=== PATIENT | male | born 1940 | race Caucasian/White ===

== ENCOUNTER 2019-06-25 06:00 | Outpatient (RCR) | payer MEDICARE, OTHER, SELFPAY | END 2019-07-23 23:59 | disposition home or self-care (01) | LOC: SPT 06:00 | PROVIDERS: Family Provider Electrodiagnostic Medicine; PCP Electrodiagnostic Medicine; Referring Provider Specialist; Visit Provider Specialist | DX: Z47.1 Aftercare following joint replacement surgery (principal); Z96.651 Presence of right artificial knee joint | CPT/HCPCS: 97110; 97162 ==

== ENCOUNTER 2019-07-24 06:00 | Outpatient (RCR) | payer MEDICARE, OTHER, SELFPAY | END 2019-08-21 23:59 | disposition home or self-care (01) | LOC: SPT 06:00 | PROVIDERS: Family Provider Electrodiagnostic Medicine; PCP Electrodiagnostic Medicine; Referring Provider Specialist; Visit Provider Specialist | DX: Z47.1 Aftercare following joint replacement surgery (principal); Z96.651 Presence of right artificial knee joint | CPT/HCPCS: 97110 ==

== ENCOUNTER → 2019-07-26 11:35 | Outpatient (BNVA) | payer MEDICARE, OTHER, SELFPAY | PROVIDERS: Family Provider Electrodiagnostic Medicine; PCP Electrodiagnostic Medicine; Visit Provider Specialist | DX: Z48.89 Encounter for other specified surgical aftercare (principal); Z96.652 Presence of left artificial knee joint | CPT/HCPCS: 73560; 73565 ==

== ENCOUNTER → 2019-12-16 09:18 | Outpatient (BNVA) | payer MEDICARE, OTHER, SELFPAY | PROVIDERS: Family Provider Electrodiagnostic Medicine; PCP Electrodiagnostic Medicine; Visit Provider Specialist | DX: M17.11 Unilateral primary osteoarthritis, right knee (principal) | CPT/HCPCS: 73560; 73565 ==

== ENCOUNTER 2020-01-24 12:29 | Outpatient (CLI) | payer MEDICARE, OTHER, SELFPAY ==
--- NOTE | 2020-01-24 12:45 | USCV_ITS ---
Raul Gomez Age: 79 Gender: M : 1940 Exam Date: 01/24/2020 12:48 Ordering Phys: Andrew Conway MD ([email or web address]) Technologist: Radha Prince Exam Location: [facility] – [place] Indication: BP: 120 / 75 HR: 60 Rhythm: Sinus Technical Quality: Adequate MEASUREMENTS (Male / Female) Normal Values 2D ECHO LV Diastolic Diameter PLAX 4.8 cm 4.2 - 5.9 / 3.9 - 5.3 cm LV Systolic Diameter PLAX 2.7 cm LV Chamber Size 3.6 cm IVS Diastolic Thickness 1.2 cm 0.6 - 1.0 / 0.6 - 0.9 cm IVS Systolic Thickness 1.4 cm LVPW Diastolic Thickness 1.1 cm 0.6 - 1.0 / 0.6 - 0.9 cm LVPW Systolic Thickness 1.8 cm RV Chamber Size 4.2 cm LVOT Diameter 2.0 cm LV Ejection Fraction 2D Teich 75.4 % LV Ejection Fraction MOD 2C -3.4 % LV Ejection Fraction 2C AL -3.3 % LA Diameter 5.2 cm LA Width 3.0 cm LA Height 4.1 cm RA Width 2.0 cm RA Height 4.5 cm Aorta at Sinotubular Diameter 3.0 cm M-MODE LV Diastolic Diameter MM 4.6 cm 4.2 - 5.9 / 3.9 - 5.3 cm LV Systolic Diameter MM 2.3 cm LV Ejection Fraction MM Teich 82.2 % IVS Diastolic Thickness MM 0.9 cm 0.6 - 1.0 / 0.6 - 0.9 cm IVS Systolic Thickness MM 1.0 cm LVPW Diastolic Thickness MM 0.9 cm 0.6 - 1.0 / 0.6 - 0.9 cm LVPW Systolic Thickness MM 1.2 cm RV Diastolic Diameter MM 1.5 cm Aortic Annulus Diameter 3.7 cm LA Ao Ratio MM 1.4 MV E Point Septal Separation 0.7 cm DOPPLER AV Peak Velocity 309.0 cm/s LVOT Peak Velocity 76.0 cm/s AV Area Cont Eq vti 1.1 cm squared AV Area Cont Eq pk 0.8 cm squared MV Area PHT 2.5 cm squared Mitral E to A Ratio 0.8 MV E' Velocity 6.0 cm/s Mitral E to MV E' Ratio 12.0 Mitral E to LV E' Lateral Ratio 11.0 Mitral E to LV E' Septal Ratio 13.4 TR Peak Velocity 275.6 cm/s TR Peak Gradient 30.4 mmHg TR Mean Velocity 218.3 cm/s TR Mean Gradient 20.9 mmHg TR Velocity Time Integral 103.7 cm TV Peak E Velocity 81.0 cm/s PV Peak Velocity 64.0 cm/s RV Acceleration Time 0.1 s RV Ejection Time 0.3 s RV AcT/ET 0.3 FINDINGS Left Ventricle Normal left ventricular cavity size. Normal left ventricular systolic function. Increased left ventricular wall thickness. Left ventricular ejection fraction is estimated at 70 %. No regional wall motion abnormalities. Grade II diastolic dysfunction, moderately elevated filling pressures. Right Ventricle Normal right ventricular size and systolic function. Right ventricular systolic pressure 33 mmHg. Right Atrium Mildly increased right atrial size. Left Atrium Moderately increased left atrial size. Mitral Valve Mild mitral annular calcification. Mildly thickened and calcified mitral valve. Aortic Valve Markedly thickened and calcified aortic valve. Moderate aortic valve stenosis, peak velocity 3 m/s, peak gradient 36 mmHg, mean gradient 18 mmHg, SUMMER 1.1 cm squared. Mild aortic valve regurgitation. Tricuspid Valve Structurally normal tricuspid valve. Trace tricuspid valve regurgitation. Pulmonic Valve Pulmonic valve not well visualized. Pericardium No pericardial effusion. Aorta Normal-sized aortic root. CONCLUSIONS 1. This is a technically difficult study. 2. Normal left ventricular cavity size and systolic function. Increased left ventricular wall thickness. Left ventricular ejection fraction is estimated at 70 %. No diagnostic regional wall motion abnormalities. Grade II diastolic dysfunction, moderately elevated filling pressures. 3. Moderate aortic valve stenosis, peak velocity 3 m/s, peak gradient 36 mmHg, mean gradient 18 mmHg, SUMMER 1.1 cm squared. Mild aortic valve regurgitation. 4. When compared to previous echocardiogram dated 01/25/2019, there may not have been any significant change. Meera Ware MD (Electronically Signed) Final Date: 25 January 2020 16:39 S
== END 2020-01-24 12:30 | disposition home or self-care (01) ==
LOC: US 12:31
PROVIDERS: PCP Electrodiagnostic Medicine; Visit Provider Internal Medicine Cardiovascular Disease
DX: I35.0 Nonrheumatic aortic (valve) stenosis (principal); I51.81 Takotsubo syndrome
CPT/HCPCS: 93306

== ENCOUNTER → 2020-01-27 08:48 | Outpatient (BNVA) | payer MEDICARE, OTHER, SELFPAY | PROVIDERS: PCP Electrodiagnostic Medicine; Visit Provider Specialist | DX: M17.11 Unilateral primary osteoarthritis, right knee (principal); M17.12 Unilateral primary osteoarthritis, left knee | CPT/HCPCS: 73560; 73565 ==

== ENCOUNTER → 2020-07-05 12:53 | Outpatient (BNVA) | payer MEDICARE, OTHER, SELFPAY | PROVIDERS: PCP Electrodiagnostic Medicine; Visit Provider Specialist | DX: M25.552 Pain in left hip (principal) | CPT/HCPCS: 73502 ==

== ENCOUNTER 2020-07-10 06:00 | Outpatient (RCR) | payer MEDICARE, OTHER, SELFPAY | END 2020-07-23 23:59 | disposition home or self-care (01) | LOC: SPT 06:00 | PROVIDERS: PCP Electrodiagnostic Medicine; Referring Provider Specialist; Visit Provider Specialist | DX: M54.5 Low back pain (principal); G89.29 Other chronic pain | CPT/HCPCS: 97110; 97162 ==

== ENCOUNTER 2020-07-24 06:00 | Outpatient (RCR) | payer MEDICARE, OTHER, SELFPAY | END 2020-08-20 23:59 | disposition home or self-care (01) | LOC: SPT 06:00 | PROVIDERS: PCP Electrodiagnostic Medicine; Referring Provider Specialist; Visit Provider Specialist | DX: M54.5 Low back pain (principal); G89.29 Other chronic pain | CPT/HCPCS: 97110 ==

== ENCOUNTER 2020-07-28 13:05 | Outpatient (CLI) | payer MEDICARE, OTHER, SELFPAY ==
--- NOTE | 2020-07-28 13:17 | USCV_ITS ---
Raul Gomez Age: 80 Gender: M : 1940 Exam Date: 07/28/2020 13:34 Ordering Phys: Vikas Elias M.D ([email or web address]) Technologist: Radha Prince [place] [facility] [place]: AV STENOSIS BP: 130 / 60 HR: 51 Rhythm: Sinus Technical Quality: Adequate MEASUREMENTS (Male / Female) Normal Values 2D ECHO LV Diastolic Diameter PLAX 3.0 cm 4.2 - 5.9 / 3.9 - 5.3 cm LV Systolic Diameter PLAX 2.3 cm IVS Diastolic Thickness 0.9 cm 0.6 - 1.0 / 0.6 - 0.9 cm IVS Systolic Thickness 1.4 cm LVPW Diastolic Thickness 2.7 cm 0.6 - 1.0 / 0.6 - 0.9 cm LVPW Systolic Thickness 1.6 cm LVOT Diameter 2.0 cm LV Ejection Fraction 2D Teich 70.5 % LV Ejection Fraction MOD 2C 65.6 % LV Ejection Fraction 2C AL 67.8 % LA Diameter 4.0 cm LA Width 2.7 cm LA Height 4.9 cm RA Width 2.4 cm RA Height 3.7 cm Aorta at Sinotubular Diameter 3.7 cm M-MODE LV Diastolic Diameter MM 4.2 cm 4.2 - 5.9 / 3.9 - 5.3 cm LV Systolic Diameter MM 2.3 cm LV Ejection Fraction MM Teich 77.1 % IVS Diastolic Thickness MM 1.3 cm 0.6 - 1.0 / 0.6 - 0.9 cm IVS Systolic Thickness MM 1.6 cm LVPW Diastolic Thickness MM 1.5 cm 0.6 - 1.0 / 0.6 - 0.9 cm LVPW Systolic Thickness MM 2.0 cm RV Diastolic Diameter MM 1.8 cm Aortic Annulus Diameter 3.2 cm LA Ao Ratio MM 1.4 MV E Point Septal Separation 0.8 cm DOPPLER AV Peak Velocity 257.0 cm/s LVOT Peak Velocity 71.3 cm/s AV Area Cont Eq vti 1.1 cm squared AV Area Cont Eq pk 0.9 cm squared MV Area PHT 3.5 cm squared Mitral E to A Ratio 0.5 MV E' Velocity 24.0 cm/s Mitral E to MV E' Ratio 9.4 Mitral E to LV E' Lateral Ratio 8.2 Mitral E to LV E' Septal Ratio 11.2 TR Peak Velocity 217.9 cm/s TR Peak Gradient 19.0 mmHg TR Mean Velocity 158.1 cm/s TR Mean Gradient 11.4 mmHg TR Velocity Time Integral 56.2 cm TV Peak E Velocity 59.0 cm/s Right Atrial Pressure 3.0 mmHg Pulmonary Artery Systolic Pressu 22.0 mmHg PV Peak Velocity 52.0 cm/s RV Acceleration Time 0.1 s RV Ejection Time 0.3 s RV AcT/ET 0.4 FINDINGS Left Ventricle Normal left ventricular size. LV systolic function is normal with EF of 55 to 60%. No regional wall motion abnormalities are seen. Grade 1 diastolic dysfunction is seen. Right Ventricle The right ventricle is normal in size and function. Right Atrium The right atrium is normal in size. Left Atrium The left atrium is normal in size. Mitral Valve Moderate mitral annular calcification is seen. No mitral stenosis. There is mild mitral regurgitation. Aortic Valve Aortic valve is moderately calcified and thickened. There is moderate aortic stenosis. By continuity equation, aortic valve area is 1.1 cm squared with mean gradient across the valve of 14.7 mmHg. There is mild to moderate aortic regurgitation. Tricuspid Valve Structurally normal tricuspid valve without significant stenosis. Trace tricuspid regurgitation is seen. RVSP is 20 to 25 mmHg. Pulmonic Valve Not well-visualized. Pericardium Normal pericardium without effusion. Aorta Normal ascending aorta dimension. CONCLUSIONS LV systolic function is normal with EF of 55 to 60%. Grade 1 diastolic dysfunction is seen. There is moderately calcified and thickened. There is moderate aortic stenosis with aortic valve area of 1.1 cm squared and mean gradient across the valve of 14.7 mmHg. There is mild to moderate aortic regurgitation present as well. Mild mitral regurgitation. Trace tricuspid regurgitation is seen. Prior echocardiogram from 01/24/2020, no significant changes are noted. Aortic valve stenosis is stable. Vikas Elias MD (Electronically Signed) Final Date: 06 August 2020 13:43 S
== END 2020-07-28 13:06 | disposition home or self-care (01) ==
LOC: US 13:07
PROVIDERS: PCP Electrodiagnostic Medicine; Visit Provider Internal Medicine
DX: I35.0 Nonrheumatic aortic (valve) stenosis (principal)
CPT/HCPCS: 93306

== ENCOUNTER 2020-08-21 06:00 | Outpatient (RCR) | payer MEDICARE, OTHER, SELFPAY | END 2020-09-20 23:59 | disposition home or self-care (01) | LOC: SPT 06:00 | PROVIDERS: PCP Electrodiagnostic Medicine; Referring Provider Specialist; Visit Provider Specialist | DX: M54.5 Low back pain (principal); G89.29 Other chronic pain | CPT/HCPCS: 97110 ==

== ENCOUNTER 2021-01-30 12:29 | Outpatient (CLI) | payer MEDICARE, OTHER, SELFPAY ==
--- NOTE | 2021-01-30 12:45 | USCV_ITS ---
Raul Gomez Age: 80 Gender: M : 1940 Exam Date: 01/30/2021 13:06 Ordering Phys: Vikas Elias M.D ([email or web address]) Technologist: Patricia Benjamin Exam Location: [facility] – [place] Indication: non rheumatic AO stenosi BP: 140 / 70 HR: 57 Rhythm: Sinus Technical Quality: Fair MEASUREMENTS (Male / Female) Normal Values 2D ECHO LV Diastolic Diameter PLAX 4.6 cm 4.2 - 5.9 / 3.9 - 5.3 cm LV Systolic Diameter PLAX 1.8 cm IVS Diastolic Thickness 1.4 cm 0.6 - 1.0 / 0.6 - 0.9 cm IVS Systolic Thickness 2.0 cm LVPW Diastolic Thickness 1.0 cm 0.6 - 1.0 / 0.6 - 0.9 cm LVPW Systolic Thickness 2.1 cm LVOT Diameter 2.1 cm LV Ejection Fraction 2D Teich 90.7 % LV Ejection Fraction MOD 2C 79.2 % LV Ejection Fraction 2C AL 80.1 % LA Diameter 4.1 cm LA Width 3.0 cm LA Height 5.7 cm RA Width 2.9 cm RA Height 4.7 cm Aorta at Sinotubular Diameter 3.1 cm M-MODE Aortic Annulus Diameter 3.4 cm LA Ao Ratio MM 1.1 DOPPLER AV Peak Velocity 352.3 cm/s LVOT Peak Velocity 124.0 cm/s AV Area Cont Eq vti 1.4 cm squared AV Area Cont Eq pk 1.2 cm squared MV Peak Velocity 93.0 cm/s MV Area PHT 1.9 cm squared Mitral E to A Ratio 0.7 MV E' Velocity 31.5 cm/s Mitral E to MV E' Ratio 8.6 Mitral E to LV E' Lateral Ratio 7.2 Mitral E to LV E' Septal Ratio 10.6 TR Peak Velocity 295.3 cm/s TR Peak Gradient 34.9 mmHg TR Mean Velocity 239.9 cm/s TR Mean Gradient 24.5 mmHg TR Velocity Time Integral 80.0 cm Right Atrial Pressure 3.0 mmHg Pulmonary Artery Systolic Pressu 37.9 mmHg PV Peak Velocity 63.0 cm/s RV Acceleration Time 0.1 s RV Ejection Time 0.3 s RV AcT/ET 0.4 FINDINGS Left Ventricle Normal left ventricular size. LV systolic function is normal with EF of 55-60%. No regional wall motion abnormalities. Grade 1 diastolic dysfunction Right Ventricle The right ventricle is normal in size and function. Right Atrium The right atrium is normal in size. Left Atrium The left atrium is normal in size. Mitral Valve Structurally normal mitral valve without significant stenosis or prolapse. There is trace mitral regurgitation. Aortic Valve Calcified aortic valve. There is moderate aortic stenosis with SUMMER of 1.27cm2 and mean gradient across the aortic valve of 27mmHg. There is mild aortic regurgitation. Tricuspid Valve Structurally normal tricuspid valve without significant stenosis. Mild tricuspid regurgitation. RVSP is 40-45mmHg. Mild pulmonary hypertension is seen Pulmonic Valve Structurally normal pulmonic valve without significant stenosis. There is no pulmonic regurgitation. Pericardium Normal pericardium without effusion. Aorta Normal ascending aorta dimension. CONCLUSIONS LV systolic function is normal with EF of 55-60% Grade 1 diastolic dysfunction Moderate aortic stenosis. Mild aortic regurgitation Trace mitral regurgitation. Mild tricuspid regurgitation Mild pulmonary hypertension Compared to prior echocardiogram from 07/28/2020, aortic stenosis has now progressed to moderate aortic stenosis. Recommend repeating echo in 6 months Vikas Elias MD (Electronically Signed) Final Date: 05 February 2021 12:46 S
== END 2021-01-30 12:30 | disposition home or self-care (01) ==
LOC: US 12:34
PROVIDERS: PCP Electrodiagnostic Medicine; Visit Provider Internal Medicine
DX: I27.20 Pulmonary hypertension, unspecified (principal); I08.3 Combined rheumatic disorders of mitral, aortic and tricuspid valves
CPT/HCPCS: 93306

== ENCOUNTER 2021-03-21 08:32 | Outpatient (CLI) | payer MEDICARE, OTHER, SELFPAY ==
--- NOTE | 2021-03-21 08:48 | MR_ITS ---
WS: [id number] MRI LUMBAR SPINE NONCONTRAST TECHNIQUE: Sagittal T1, T2 and STIR imaging. Axial T1 and T2 imaging. CLINICAL INFORMATION: BACK PAIN, LUMBAR WITH RADICULOPATHY COMPARISON: MRI 3 FINDINGS: Minimal lumbar curve. No acute compression. No high-grade central canal stenosis. Disc space narrowin g L2-3 with endplate degenerative changes has progressed compared to previous L1-L2: Mild annular bulging with narrowing of the subarticular recess right greater than left. Mild f acet arthropathy. Small left foraminal protrusion with mild left foraminal narrowing. Mild right fora katerin narrowing. L2-L3: Fatty marrow endplate degenerative changes progressed from previous. Postoperative changes il inectomy defects. Mild residual narrowing of the right subarticular recess. Moderate facet arthropath y. Mild to moderate right and no significant left foraminal narrowing. L3-L4: Mild disc bulging with osteophytic ridging. Mild central canal stenosis. Slight impingement tr aversing L4 nerve roots bilaterally. Moderate facet arthropathy. Laminectomy defects. Bilateral jay inal protrusions with moderate bilateral foraminal narrowing. L4-L5: Mild disc bulging with impingement left subarticular recess and traversing L5 nerve root. Mode rate facet arthropathy. Mild to moderate left foraminal narrowing. Right foramen is patent. L5-S1: Mild disc bulging with osteophytic ridging. Impingement on the right subarticular recess and t raversing right S1 nerve root. Foramen are patent. Moderate facet arthropathy. Small right renal cyst.Small central protrusion thoracic spine at T8-T9 with mild central canal steno sis in the gum machine operator imaging. MR/MR lumbar spine wo con* [id number] IMPRESSION: 1. Mild lumbar curve. No acute compression. Laminectomy defects L2-3 and L3-4 new from previous. 2. Progressed degenerative disc disease at L2-3 with fatty marrow endplate-typ e changes. 3. Mild central canal stenosis L3-4 due to disc bulging with facet arthropathy ligamentum flavum hypertrophy. Impingement on the traversing L4 nerve roots in the subarticular recess left greater than right. 4. Disc bulging and osteophytic ridging. Impingement traversing left L5 nerve root in the subarticular recess. 5. Disc bulging L5-S1 slightly impinges the traversing right S1 nerve root. 6. Mild disc bulging L1-2 slightly impinges the traversing L2 nerve roots in t he subarticular recess. 7. Residual impingement on the right subarticular recess L2-3 with laminectomy defects. 8. Multilevel bony foraminal narrowing worse at right L2-3, bilateral L3-4, le ft L4-5. 9. Moderate facet arthropathy L3-L4 L4-L5. 10. Small central protrusion thoracic spine at T8-T9 with mild central canal s tenosis in the gum machine operator imaging.
--- NOTE | 2021-03-21 08:58 | XR_ITS ---
WS: [id number] KNEE LEFT TECHNIQUE: 3 views of the left knee CLINICAL INFORMATION: KNEE PAIN LEFT CHRONIC COMPARISON: None. FINDINGS: Moderate degenerative arthritis left knee with hypertrophic changes. Narrowing of the medial lateral joint compartments and patellofemoral articulation. Hypertrophic patella. Vascular calcification. XR/XR knee LT 3V* [id number] IMPRESSION: Moderate tricompartmental arthritis Kellgren-Boby Classification: grade 3 (moderate): moderate multiple osteoph ytes, definite narrowing of joint space and some sclerosis and possible deformi ty of bone ends
== END 2021-03-21 08:33 | disposition home or self-care (01) ==
PROVIDERS: PCP Electrodiagnostic Medicine; Visit Provider Electrodiagnostic Medicine
DX: M13.862 Other specified arthritis, left knee (principal); G89.29 Other chronic pain; M54.16 Radiculopathy, lumbar region; M51.24 Other intervertebral disc displacement, thoracic region; M47.816 Spondylosis without myelopathy or radiculopathy, lumbar region; M51.26 Other intervertebral disc displacement, lumbar region; M51.27 Other intervertebral disc displacement, lumbosacral region; M48.061 Spinal stenosis, lumbar region without neurogenic claudication; M25.78 Osteophyte, vertebrae; M51.36 Other intervertebral disc degeneration, lumbar region; M96.1 Postlaminectomy syndrome, not elsewhere classified
CPT/HCPCS: 72148; 73562

== ENCOUNTER → 2021-04-12 13:35 | Outpatient (BNVA) | payer MEDICARE, OTHER, SELFPAY | PROVIDERS: PCP Electrodiagnostic Medicine; Visit Provider Physician Assistant | DX: M54.9 Dorsalgia, unspecified (principal); G89.29 Other chronic pain | CPT/HCPCS: 72110 ==

== ENCOUNTER → 2021-04-18 09:51 | Outpatient (BNVA) | payer MEDICARE, OTHER, SELFPAY | PROVIDERS: PCP Electrodiagnostic Medicine; Referring Provider Orthopaedic Surgery; Visit Provider Anesthesiology Pain Medicine | DX: G89.29 Other chronic pain (principal); M54.50 Low back pain, unspecified | CPT/HCPCS: 99204 ==

== ENCOUNTER 2021-05-23 06:00 | Outpatient (RCR) | payer MEDICARE, OTHER, SELFPAY | END 2021-06-22 23:59 | disposition home or self-care (01) | LOC: SPT 06:00 | PROVIDERS: PCP Electrodiagnostic Medicine; Referring Provider Anesthesiology Pain Medicine; Visit Provider Anesthesiology Pain Medicine | DX: M54.50 Low back pain, unspecified (principal); G89.29 Other chronic pain | CPT/HCPCS: 97110; 97161 ==

== ENCOUNTER → 2021-06-13 11:14 | Outpatient (BNVA) | payer MEDICARE, OTHER, SELFPAY | PROVIDERS: PCP Electrodiagnostic Medicine; Visit Provider Anesthesiology Pain Medicine | DX: G89.29 Other chronic pain (principal); M54.50 Low back pain, unspecified | CPT/HCPCS: 99212 ==

== ENCOUNTER → 2021-07-16 00:01 | Outpatient (BNVA) | payer MEDICARE, OTHER, SELFPAY | PROVIDERS: PCP Electrodiagnostic Medicine; Visit Provider Orthopaedic Surgery | DX: Z01.812 Encounter for preprocedural laboratory examination (principal); Z20.822 Contact with and (suspected) exposure to COVID-19 | CPT/HCPCS: 87635 ==

== ENCOUNTER 2021-07-20 07:51 | Day surgery (SDC) | payer MEDICARE, OTHER, SELFPAY ==
[2021-07-19 18:11] VITALS: BMI 25.1
[2021-07-20] VITALS (8 sets, daily range): BP systolic 122–159; BP diastolic 59–91; PULSE 50–72; RESP 12–18; TEMP 36.1–36.6; O2SAT 95–100
--- NOTE | 2021-07-20 | XR_ITS ---
WS: [id number] INTRAOPERATIVE TECHNIQUE: 6 Spot fluoroscopic images for intraoperative purposes. FLUOROSCOPY TIME: 22.4 seconds CLINICAL INFORMATION: lumbar stenosis with neurogenic claudation COMPARISON: None. FINDINGS: Localization marker projected over the L3-4 interspace on the final imaging IMPRESSION: Images obtained for intraoperative purposes.
--- NOTE | 2021-07-20 | SCC_ITS ---
Procedure done: 1. L4/5 laminectomy with partial facetectomy 22.4 seconds of fluoroscopic guidance, for a cumulative dose of 26.48 mGy, was provided to Dr. Mccain by the radiology department. C-arm images of the lumbar spine were saved for the patient's permanent record. [facility]
--- NOTE | 2021-07-20 08:30 | ECG_ITS ---
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 Measurements Intervals [place] Rate: 48 P: 24 VT: 160 QRS: 19 QRSD: 108 T: 13 QT: 456 QTc: 410 Interpretive Statements SINUS BRADYCARDIA PROBABLE LATERAL MYOCARDIAL INFARCTION , OF INDETERMINATE AGE [35 ms Q WAVE IN I/aVL/V5/V6] Compared to ECG 05/26/2019 10:25:03 Myocardial infarct finding now present Electronically Signed On 07-20-2021 11:34:13 IT SYSTEMS ADMINISTRATOR by Malik Serrato M.D. [email or web address] olive branch hospitalLongxun Changt[employer] Technologyour lady of [email or web address]/[id number]
[2021-07-20] MEDS: sodium chloride 0.9% 1,000 ML 30 ML IV (08:47)
[2021-07-20 08:54] LABS: Basophils # 0.1 10^3/uL (0.0-0.1); Basophils % 1.3 %; Eosinophils # 0.2 10^3/uL (0.0-0.8); Eosinophils % 4.4 %; Hematocrit 42.9 % (42.0-52.0); Hemoglobin 14.3 g/dL (11.7-16.6); Lymphocytes # 1.9 10^3/uL (0.8-4.8); Mean Corpuscular HGB Conc 33.3 g/dL (30.0-36.0); Mean Corpuscular Hemoglobin 30.6 pg (28.0-34.0); Mean Corpuscular Volume 91.7 fl (80-94); Mean Platelet Volume 10.6 fL (7.4-10.4); Monocytes # 0.7 10^3/uL (0.2-0.9); Monocytes % 12.7 %; Neutrophils # 2.61 10^3/uL (1.8-7.7); Neutrophils % 47.4 %; Nucleated Red Blood Cells % 0 %; Platelet Count 207 10^3/cmm (130-400); Red Blood Count 4.68 10^6/uL (4.1-5.3); Red Cell Distribution Width 13.5 % (12.1-15.1); White Blood Count 5.5 10^3/uL (4.0-10.0)
--- NOTE | 2021-07-20 09:08 | ANES.PREANE2 ---
Pre-Anesthetic Assessment Height/Weight: Height 1.78 m Weight 79.379 kg Temp Pulse Resp BP Pulse Ox 97.8 F 50 L 17 159/84 95 07/20/21 08:17 07/20/21 08:17 07/20/21 08:17 07/20/21 08:17 07/20/21 08:17 Preop Diagnosis: Lumbar stenosis with Neurogenic Claudicaaation Operation Date: 07/20/21 09:25 Proposed Procedures p Lumbar Spine Decompression [id number](Not Applicable) - Nicholas Mccain DO Familial anesthetic complications: Wakes up slow no allergies, no prolonged intubation Was Beta Yaw taken within 24 hours: N/A Was Clonidine taken within 24 hours: N/A Last intake: Intake Last Liquid Date 07/19/21 Last Liquid Time 19:00 Last Solid Date 07/19/21 Last Solid Time 17:00 Social No alcohol and No tobacco Exam alert, oriented x 3, clear to auscultation bilaterally and regular rate & rhythm Airway Submandibular: within normal limits Cervical ROM: within normal limits Mallampati: Class II Comments: Comments: Missing teeth History/ROS No significant complaints Pulmonary None reported CV/HEM Hypertension and Murmur METS < 4 due to pain TTE 02/10 CONCLUSIONS ?LV systolic function is normal with EF of 55-60% ?Grade 1 diastolic dysfunction ?Moderate aortic stenosis. Mild aortic regurgitation ?Trace mitral regurgitation. Mild tricuspid regurgitation ?Mild pulmonary hypertension ?Compared to prior echocardiogram from 07/28/2020, aortic stenosis ?has now progressed to moderate aortic stenosis. Recommend ?repeating echo in 6 months None reported Hepatic None reported GI None reported Metabolic None reported Musc/skel Osteoarthritis/DJD and Weakness Neuropsych None reported Anesthetic Plan ASA status: 3 (81 year old male with moderate , mild TR, pulmonary htn w/ funtional limations related to chronic pain. ) Anesthesia: Anesthesia Evaluation and General Risk of > 500 ml blood loss (7ml/kg in children): No Medications/Allergies Home Medications Medication Instructions Recorded Confirmed Last Taken Type levothyroxine 75 mcg capsule 75 mcg PO QDAY 07/22/19 07/20/21 07/20/21 History omega-3 fatty acids [Fish Oil 1,000 mg PO DAILY 07/22/19 07/20/21 07/19/21 History Concentrate] pyridoxine (vitamin B6) 25 mg pop 25 mg PO QDAY 07/22/19 07/20/21 07/19/21 History ferrous sulfate 325 mg (65 mg 325 mg PO DAILY 07/20/21 07/20/21 07/19/21 History iron) tablet Allergies Allergy/AdvReac Type Severity Reaction Status Date / Time No Known Allergies Allergy Verified 07/19/21 18:11 Current Medications Generic Name Dose Route Start Last Admin Trade Name Ferchoq PRN Reason Stop Dose Admin Sodium Chloride 1,000 mls @ 30 mls/hr 07/20/21 08:15 07/20/21 08:47 Sodium Chloride 0.9% IV 07/21/21 08:14 30 mls/hr .Q24H JOVON Administration PFSH Anesthesia Medical History Aortic stenosis Dyslipidemia HTN (hypertension) Left knee pain Primary osteoarthritis of right knee Surgical History Hx of total knee arthroplasty right S/P bunionectomy S/P carpal tunnel release S/P cholecystectomy S/P knee replacement Family History Mother CAD (coronary artery disease) Myocardial infarction Brother CAD (coronary artery disease) Myocardial infarction Social History Alcohol intake: never Household members: spouse Marital status: service: Yes branch: [employer] Current occupational status: retired 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
[2021-07-20 09:13] LABS: Anion Gap 17.1 (5-19); Blood Urea Nitrogen 16 mg/dL (8-23); Calcium 9.7 mg/dL (8.5-10.5); Carbon Dioxide 22 mmol/L (22-29); Chloride 104 mmol/L (98-107); Creatinine Clr Calc Pharmacy 76.0763; Glucose 85 mg/dL (65-115); Osmolality Calculated 288 mOsm/kg (285-295); Potassium 4.1 mmol/L (3.5-5.1); Sodium 139 mmol/L (136-145)
--- NOTE | 2021-07-20 09:16 | W.PM.OPSUD ---
Surgery/Procedure H&P Update DATE OF PROCEDURE: July 20, 2021 DATE H&P PERFORMED: 06/26/21 CHANGES TO PREVIOUS DOCUMENTATION: H+P reviewed no changes PREOP DIAGNOSIS: Lumbar stenosis with Neurogenic Claudicaaation PLANNED PROCEDURE: Operation Date: 07/20/21 09:25 Proposed Procedures p Lumbar Spine Decompression [id number](Not Applicable) - Nicholas Mccain DO
--- NOTE | 2021-07-20 10:48 | PM.OP ---
Operative Report Date of procedure: July 20, 2021 Pre-op diagnosis: Preop Diagnosis Lumbar stenosis with Neurogenic Claudicaaation Post-op diagnosis: same Procedure done: 1. L4/5 laminectomy with partial facetectomy Surgeon: Nicholas Mccain Sewing Machine Repairer: Milton Quinteros Sewing Machine Repairer: The surgical tech, Milton Quinteros, DARRIN was needed for his expertise under the microscope. He was important and necessary throughout the procedure to complete in a safe and timely manner. He assisted with patient positioning prepping and draping tissue retraction suctioning of the operative field protection of the dural sac and tissue closure Estimated blood loss (mL): 5 Procedure: 1. L4/5 laminectomy with partial facetectomy Patient is brought to the operative suite. After undergoing anesthesia they are placed in the prone position. All areas of impingement are well padded. Patient is then prepped and draped in the normal sterile fashion. A skin incision is made over the level. This is confirmed under c-arm guidance. A series of dilators are passed and the tubular retractor is docked on the L4 lamina. A bovie is used to clear the soft tissue off the lamina and the L 4/5 facet joint. A high speed julia is then used to perform the laminectomy and take down the medial aspect of the L 4/5 facet joint. A kerrison rongeure was then used to take down the remaining lamina and smooth the edge of the laminectomy up to the point where the ligamentum flavum attaches. Attention was then brought to the medial aspect of the facet joint. The remaining medial aspect of the superior and inferior aspect of the facet joint were taken down with the kerrison from the pedicle of L4 to L 5. The facet joint had significant hypertrophy. Attention was then brought to the Ligamentum Flavum. The ligament was taken down from the lamina of L4 to L5 and out medially to the remaining facet joint. The ligament was thick. The dura was then exposed. The dura was in good repair. The L4 nerve was then traced with a curette out the L4/5 foramen and found to be adequately decompressed. The L5 nerve was traced with a curette around the L5 pedicle. The lateral recess was opened with a kerrison helping to further decompress the L5 nerve. Attention was then brought to the L3-4 level. This is level patient had previous surgery on. The tubes were dilated down size 5 tube was inserted and facet was identified as the tissues were cleaned off. The facet identified. As the approach was brought superiorly there is a small dural leak. At that point I decided to stop at this level. Put a patch and surgery seal. Wound is then irrigated copiously with saline and surgiflo is used to stop any bleeding. The tubular retractor is removed and the wound is closed with vicryl and monocryl suture. Glue is then used to protect the wound. A sterile dressing is then placed. Patient was then placed in the supine position and transferred to the PACU in stable condition.
--- NOTE | 2021-07-20 12:58 | ANE.PACU2 ---
Inpatient post-anesthesia follow up: Airway intact: Yes Vital signs: Temperature 97.4 F Pulse Rate 66 Respiratory Rate 15 Blood Pressure 139/91 Pulse Oximetry 96 Oxygen Delivery Me thod Room Air Oxygen Flow Rate 2 Fraction of Inspir ed Oxygen Hydration adequate: Yes Nausea and vomiting: No Pain level: 1 Mental status: Baseline
== END 2021-07-20 12:00 | disposition home or self-care (01) ==
PROVIDERS: Anesthesiology; PCP Electrodiagnostic Medicine; Visit Provider Orthopaedic Surgery
PROC: (CPT 63005; principal; 2021-07-20 09:25)
DX: M48.062 Spinal stenosis, lumbar region with neurogenic claudication (principal); I10 Essential (primary) hypertension; E78.5 Hyperlipidemia, unspecified; M17.11 Unilateral primary osteoarthritis, right knee; Z82.49 Family history of ischemic heart disease and other diseases of the circulatory system
CPT/HCPCS: 63047; 72020; 76000; 80048; 85025; 93005; J0690; J1100; J2370; J2405; J2704; J3010; J3490; J7030

== ENCOUNTER → 2022-01-17 09:14 | Outpatient (BNVA) | payer MEDICARE, OTHER, SELFPAY | PROVIDERS: PCP Electrodiagnostic Medicine; Visit Provider Family Medicine Adult Medicine | DX: Z20.822 Contact with and (suspected) exposure to COVID-19 (principal); B97.89 Other viral agents as the cause of diseases classified elsewhere; J02.8 Acute pharyngitis due to other specified organisms | CPT/HCPCS: 87635 ==

== ENCOUNTER → 2022-01-31 12:33 | Outpatient (BNVA) | payer MEDICARE, OTHER, SELFPAY | PROVIDERS: PCP Electrodiagnostic Medicine; Visit Provider Internal Medicine | DX: I35.0 Nonrheumatic aortic (valve) stenosis (principal); E78.5 Hyperlipidemia, unspecified; I10 Essential (primary) hypertension | CPT/HCPCS: 99213; 99214 ==

== ENCOUNTER → 2022-02-19 07:57 | Outpatient (BNVA) | payer MEDICARE, SELFPAY | PROVIDERS: PCP Electrodiagnostic Medicine; Visit Provider Podiatrist Foot & Ankle Surgery | DX: I73.9 Peripheral vascular disease, unspecified (principal); L60.3 Nail dystrophy | CPT/HCPCS: 99213 ==

== ENCOUNTER 2022-03-11 11:53 | Outpatient (CLI) | payer MEDICARE, SELFPAY ==
--- NOTE | 2022-03-11 13:00 | USCV_ITS ---
Raul Gomez Age: 81 Gender: M : 1940 Exam Date: 03/11/2022 12:34 Ordering Phys: Vikas Elias M.D ([email or web address]) Technologist: Patricia Benjamin [place] [facility] [place]ication: sob, Aortic stenosis BP: 120 / 64 HR: 58 Rhythm: Sinus Technical Quality: Adequate MEASUREMENTS (Male / Female) Normal Values 2D ECHO LV Diastolic Diameter PLAX 3.9 cm 4.2 - 5.9 / 3.9 - 5.3 cm LV Systolic Diameter PLAX 2.3 cm IVS Diastolic Thickness 1.6 cm 0.6 - 1.0 / 0.6 - 0.9 cm IVS Systolic Thickness 1.7 cm LVPW Diastolic Thickness 1.1 cm 0.6 - 1.0 / 0.6 - 0.9 cm LVPW Systolic Thickness 1.5 cm LVOT Diameter 2.0 cm LV Ejection Fraction 2D Teich 72.1 % LV Ejection Fraction MOD 2C 66.4 % LV Ejection Fraction 2C AL 71.0 % LA Diameter 4.4 cm LA Width 3.5 cm LA Height 5.9 cm RA Width 1.6 cm RA Height 4.5 cm Aorta at Sinotubular Diameter 3.0 cm M-MODE MV E Point Septal Separation 0.8 cm DOPPLER AV Peak Velocity 293.0 cm/s LVOT Peak Velocity 90.0 cm/s AV Area Cont Eq vti 1.2 cm squared AV Area Cont Eq pk 1.0 cm squared MV Peak Velocity 89.0 cm/s MV Area PHT 1.9 cm squared Mitral E to A Ratio 0.5 MV E' Velocity 26.5 cm/s Mitral E to MV E' Ratio 7.4 Mitral E to LV E' Lateral Ratio 5.8 Mitral E to LV E' Septal Ratio 10.2 TR Peak Velocity 195.3 cm/s TR Peak Gradient 15.3 mmHg Right Atrial Pressure 3.0 mmHg Pulmonary Artery Systolic Pressu 18.3 mmHg FINDINGS Left Ventricle Left ventricle is normal in size. LV systolic function is normal with EF of 55 to 60%. No regional wall motion abnormalities are seen. Grade 1 diastolic dysfunction. Right Ventricle Normal in size and function Right Atrium Normal in size Left Atrium Normal in size Mitral Valve Mild mitral annular calcification is seen. Trace mitral regurgitation Aortic Valve Calcified aortic valve. Moderate to severe aortic stenosis with aortic valve area of 0.95 cm squared and mean gradient across aortic valve of 24.6 mmHg. Mild aortic regurgitation. Tricuspid Valve Mild tricuspid regurgitation. Insufficient TR jet to calculate RVSP Pulmonic Valve Not well-visualized Pericardium Normal Aorta Normal in size IVC CONCLUSIONS LV systolic function is normal with EF 55 to 60% Grade 1 diastolic dysfunction Trace mitral regurgitation Calcified aortic valve. Moderate to severe aortic stenosis with aortic valve area of 0.95 cm squared and mean gradient across aortic valve of 24.6 mmHg. Mild aortic regurgitation. Mild tricuspid regurgitation Compared to prior echocardiogram from 01/30/2021, aortic stenosis has worsened slightly. Vikas Elias MD (Electronically Signed) Final Date: 26 March 2022 12:55 S
== END 2022-03-11 11:54 | disposition home or self-care (01) ==
LOC: RAD 11:54
PROVIDERS: PCP Electrodiagnostic Medicine; Visit Provider Internal Medicine
DX: R06.02 Shortness of breath (principal); I35.0 Nonrheumatic aortic (valve) stenosis; I07.1 Rheumatic tricuspid insufficiency
CPT/HCPCS: 93306

== ENCOUNTER → 2022-07-29 10:58 | Outpatient (BNVA) | payer MEDICARE, OTHER, SELFPAY | PROVIDERS: PCP Electrodiagnostic Medicine; Visit Provider Podiatrist Foot & Ankle Surgery | DX: I73.9 Peripheral vascular disease, unspecified (principal); L60.3 Nail dystrophy; L74.513 Primary focal hyperhidrosis, soles | CPT/HCPCS: 11721 ==

== ENCOUNTER 2022-08-08 03:59 | Emergency (ER) | payer MEDICARE, OTHER, SELFPAY ==
[2022-08-08 04:00] VITALS: BMI 17.4
[2022-08-08 04:03] VITALS: BP 148/79; PULSE 59; RESP 16; TEMP 37.1; O2SAT 92
--- NOTE | 2022-08-08 04:03 | XRR_ITS ---
PROCEDURE INFORMATION: Exam: XR Right Hip Exam date and time: 08/08/2022 4:08 AM Age: 82 years old Clinical indication: Injury or trauma; Blunt trauma (contusions or hematomas); Patient HX: From assisted living facility C/O worsening right hip pain from a fall three days ago. TECHNIQUE: Imaging protocol: Radiologic exam of the Right hip. Views: 1 view hip with pelvis when performed. COMPARISON: CR XR hip RT 2-3V wo/w pel* [id number] 11/18/2017 7:22 PM FINDINGS: Bones/joints: Alignment is normal. Joint space is preserved. No acute fracture. The visible portion of the pelvis and sacrum is intact. Soft tissues: Visible soft tissues are unremarkable. XR/XR hip RT 2-3V wo/w pel* [id number] IMPRESSION: No acute fracture.
--- NOTE | 2022-08-08 04:04 | W.ED.EXTPRO ---
HPI - Extremity Problem General: Chief complaint: Extremity Injury, Lower Stated complaint: HIP PAIN Time Seen by Provider: 08/08/22 04:00 Source: patient Mode of arrival: ambulatory Limitations: no limitations History of Present Illness: 82-year-old male who is here from [facility] he had fell 3 days ago has been having some right buttocks and hip pain since the fall. He is able to ambulate he states that he is having a hard time sleeping due to the pain he taken his 's oxycodone tonight though and is currently in minimal pain rates his pain a 1 out of 10. Denies hitting his head denies any other injuries Associated symptoms: Deny chest pain, fever(s) or rash Review of Systems Const: Denies: fever(s), chills, body aches or change in appetite Eyes: Denies: blurry vision or eye discomfort ENMT: Denies: throat pain or dental pain Card: Denies: chest pain Resp: Denies: dyspnea GI: Denies: abdominal pain, nausea, vomiting or diarrhea : Denies: dysuria Musc: Reports: extremity pain Skin/Breast: Denies: rash Neuro: Denies: headache(s) Psych: Denies: depression Herve/Lymph: Denies: easy bruising All/Imm: Denies: urticaria PFSH ED PFSH: Medical History Aortic stenosis Dyslipidemia HTN (hypertension) Left knee pain Primary osteoarthritis of right knee Sore throat (viral) Surgical History Hx of total knee arthroplasty right S/P bunionectomy S/P carpal tunnel release S/P cholecystectomy S/P knee replacement Family History Mother CAD (coronary artery disease) Myocardial infarction Brother CAD (coronary artery disease) Myocardial infarction Social History Smoking and tobacco status: never smoked Alcohol intake: never Household members: spouse Marital status: service: Yes branch: [employer] Current occupational status: retired Previous occupational history: [employer] 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[employer] Current gender identity: Male Ashley/Sabianist: Adventist Physical Exam Const: COMMON NORMALS: no acute distress, patient oriented x3 and healthy appearing HENMT: COMMON NORMALS: normocephalic and atraumatic HEAD & SCALP: normocephalic and atraumatic Eye: COMMON NORMALS: Equal, round and reactive pupils present and EOMs intact bilaterally PUPIL: Yes Equal, round and reactive pupils present Neck/C-Spine: COMMON NORMALS: full ROM and supple Chest: COMMONS NORMALS: normal inspection of the chest and normal palpation of entire chest wall Resp: COMMON NORMALS: normal respiratory effort, No retractions, No use of accessory muscles and clear to auscultation bilaterally AUSCULTATION: clear to auscultation bilaterally Cardio: COMMON NORMALS: regular rate, regular rhythm and No murmurs present (Cardio) RATE: regular rate RHYTHM: regular rhythm GI: COMMON NORMALS: Normal to inspection, nondistended, normoactive bowel sounds present, Soft to palpation, non-tender and no masses PALPATION: Yes Soft to palpation Extremity: NARRATIVE EXTREMITY EXAM: Slight tenderness over right lateral hip he has full range of motion with no pain he is able to ambulate here Neuro: COMMON NORMALS: patient oriented x3, moves all extremities and no focal motor deficits Psych: COMMON NORMALS: mental status grossly normal, Normal thought process present and cooperative THOUGHT PROCESS: Normal thought process present Skin: COMMON NORMALS: no rashes or lesions noted and no wounds GENERAL SKIN EXAM: no rashes or lesions noted Course Vital Signs: Vital signs: Vital Signs Temperature 98.8 F 08/08/22 04:03 Pulse Rate 59 L 08/08/22 04:03 Respiratory Rate 16 08/08/22 04:03 Blood Pressure 148/79 08/08/22 04:03 Pulse Oximetry 92 08/08/22 04:03 Oxygen Delivery Me thod 08/08/22 04:03 MDM - Extremity (Nontraumatic) Medical Decision Making Patient presents with right hip contusion from a fall x-ray shows no signs of fracture he is able to ambulate here he is stable for discharge back to [facility] we will prescribe him Naprosyn and hydrocodone. Discharge Plan Discharge Patient Disposition: Home Clinical Impression: Fall, Contusion of hip Condition: Stable Prescriptions: New hydrocodone-acetaminophen 5-325 mg tablet 1 tab PO Q6H PRN (Reason: pain) Qty: 14 0RF Naprosyn 500 mg tablet 500 mg PO BID PRN (Reason: pain) Qty: 20 0RF No Action levothyroxine 75 mcg capsule 75 mcg PO QDAY omega-3 fatty acids 1,000 mg PO DAILY pyridoxine (vitamin B6) 25 mg lozenge on a handle 25 mg PO QDAY Drysol 20 % solution 1 applic topical DAILY Qty: 35 2RF ferrous sulfate 325 mg (65 mg iron) Tablet 325 mg PO DAILY Discharge Orders: Discharge ED (Routine); Ordered 08/08/22 Ordered By: Raisa Daniel Referrals: Yung Sheridan DO [Primary Care Provider] - 1-3 days Discharge Diet: Advance as tolerated Discharge Activity: Resume usual activity Patient Instructions: Contusion in Adults (ED), Opioid Safety Coding Level of Care Code ED Director Of Collections And Archives for Murray Brown
[2022-08-08 04:58] VITALS: BP 156/90; PULSE 54; RESP 16; O2SAT 94
== END 2022-08-08 05:01 | disposition home or self-care (01) ==
PROVIDERS: Emergency Provider Emergency Medicine; PCP Electrodiagnostic Medicine
DX: S70.01XA Contusion of right hip, initial encounter (principal); E78.5 Hyperlipidemia, unspecified; I10 Essential (primary) hypertension; W19.XXXA Unspecified fall, initial encounter; Y92.129 Unspecified place in nursing home as the place of occurrence of the external cause
CPT/HCPCS: 73502; 99283

== ENCOUNTER → 2022-09-30 14:12 | Outpatient (BNVA) | payer MEDICARE, OTHER, SELFPAY | PROVIDERS: PCP Electrodiagnostic Medicine; Visit Provider Podiatrist Foot & Ankle Surgery | DX: I73.9 Peripheral vascular disease, unspecified (principal); L60.3 Nail dystrophy; Q82.8 Other specified congenital malformations of skin | CPT/HCPCS: 17110 ==

== ENCOUNTER 2022-10-04 09:42 | Outpatient (CLI) | payer MEDICARE, OTHER, SELFPAY ==
--- NOTE | 2022-10-04 10:00 | USCV_ITS ---
Raul Gomez Age: 82 Gender: M : 1940 Exam Date: 10/04/2022 10:12 Ordering Phys: Vikas Elias M.D ([email or web address]) Technologist: Exam Location: [facility] [place] Indication: Aortic Stenosis BP: 132 / 75 HR: 61 Rhythm: Sinus Technical Quality: Adequate MEASUREMENTS (Male / Female) Normal Values 2D ECHO LV Diastolic Diameter PLAX 3.6 cm 4.2 - 5.9 / 3.9 - 5.3 cm LV Systolic Diameter PLAX 2.3 cm IVS Diastolic Thickness 1.1 cm 0.6 - 1.0 / 0.6 - 0.9 cm IVS Systolic Thickness 1.6 cm LVPW Diastolic Thickness 1.3 cm 0.6 - 1.0 / 0.6 - 0.9 cm LVPW Systolic Thickness 1.7 cm LVOT Diameter 2.1 cm LV Ejection Fraction 2D Teich 68.6 % LV Ejection Fraction MOD 2C 76.2 % LV Ejection Fraction 2C AL 78.8 % LA Diameter 4.2 cm Aorta at Sinotubular Diameter 2.6 cm M-MODE Aortic Annulus Diameter 3.9 cm LA Ao Ratio MM 1.1 MV E Point Septal Separation 0.8 cm DOPPLER AV Peak Velocity 308.0 cm/s LVOT Peak Velocity 94.0 cm/s AV Area Cont Eq vti 1.1 cm squared AV Area Cont Eq pk 1.0 cm squared MV Area PHT 2.0 cm squared Mitral E to A Ratio 0.5 MV E' Velocity 26.5 cm/s Mitral E to MV E' Ratio 8.9 Mitral E to LV E' Lateral Ratio 6.3 Mitral E to LV E' Septal Ratio 15.2 TR Peak Velocity 291.0 cm/s TR Peak Gradient 33.9 mmHg TV Peak E Velocity 130.0 cm/s Right Atrial Pressure 3.0 mmHg Pulmonary Artery Systolic Pressu 36.9 mmHg RV Acceleration Time 0.1 s FINDINGS Left Ventricle Left ventricle is normal in size. LV systolic function is normal with EF of 60 to 65%. No regional wall motion abnormalities are seen. Grade 1 diastolic dysfunction Right Ventricle Normal in size and function Right Atrium Normal in size Left Atrium Normal in size Mitral Valve Moderate mitral annular calcification is seen. Mild mitral regurgitation. Aortic Valve Aortic valve is thickened and calcified. Mild aortic regurgitation. Moderate aortic stenosis with mean gradient across aortic valve of 20 mmHg and aortic valve area of 1.1 cm squared. Tricuspid Valve Mild tricuspid regurgitation. Insufficient TR jet to calculate RVSP Pulmonic Valve Not well-visualized. Pericardium Not well-visualized Aorta Normal in size IVC Appears to be normal CONCLUSIONS LV systolic function is normal with EF of 60 to 65%. Grade 1 diastolic dysfunction Mild mitral regurgitation Aortic valve is thickened and calcified. Moderate aortic stenosis. Mild aortic regurgitation Mild tricuspid regurgitation Compared to prior echocardiogram from 2021, no significant changes are seen. Vikas Elias MD (Electronically Signed) Final Date: 19 October 2022 14:53 S
== END 2022-10-04 09:43 | disposition home or self-care (01) ==
PROVIDERS: PCP Electrodiagnostic Medicine; Visit Provider Internal Medicine
DX: I35.0 Nonrheumatic aortic (valve) stenosis (principal); I35.1 Nonrheumatic aortic (valve) insufficiency; I35.8 Other nonrheumatic aortic valve disorders; I07.1 Rheumatic tricuspid insufficiency
CPT/HCPCS: 93306

== ENCOUNTER → 2022-12-31 13:41 | Outpatient (BNVA) | payer MEDICARE, OTHER, SELFPAY | PROVIDERS: PCP Electrodiagnostic Medicine; Visit Provider Podiatrist Foot & Ankle Surgery | DX: I73.9 Peripheral vascular disease, unspecified (principal); L60.3 Nail dystrophy; Q82.8 Other specified congenital malformations of skin | CPT/HCPCS: 11721; 17110 ==

== ENCOUNTER → 2023-01-30 12:55 | Outpatient (BNVA) | payer MEDICARE, OTHER, SELFPAY | PROVIDERS: PCP Electrodiagnostic Medicine; Visit Provider Internal Medicine | DX: I35.0 Nonrheumatic aortic (valve) stenosis (principal); E78.5 Hyperlipidemia, unspecified; I10 Essential (primary) hypertension | CPT/HCPCS: 99214 ==

== ENCOUNTER → 2023-03-03 12:45 | Outpatient (BNVA) | payer MEDICARE, OTHER, SELFPAY | PROVIDERS: PCP Electrodiagnostic Medicine; Visit Provider Podiatrist Foot & Ankle Surgery | DX: I73.9 Peripheral vascular disease, unspecified (principal); L60.3 Nail dystrophy; Q82.8 Other specified congenital malformations of skin | CPT/HCPCS: 11721; 17110 ==

== ENCOUNTER → 2023-06-03 09:53 | Outpatient (BNVA) | payer MEDICARE, OTHER, SELFPAY | PROVIDERS: PCP Electrodiagnostic Medicine; Visit Provider Podiatrist Foot & Ankle Surgery | DX: I73.9 Peripheral vascular disease, unspecified (principal); L60.3 Nail dystrophy; Q82.8 Other specified congenital malformations of skin | CPT/HCPCS: 11721; 17110 ==

== ENCOUNTER 2023-07-29 12:41 | Inpatient (IN) | payer MEDICARE, OTHER, SELFPAY ==
[2023-07-29] VITALS (10 sets, daily range): BP systolic 122–168; BP diastolic 67–87; PULSE 46–57; RESP 15–21; TEMP 36.3–36.6; O2SAT 91–96; BMI 27.0; BMI 26.2
--- NOTE | 2023-07-29 12:59 | ECG_ITS ---
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 Measurements Intervals Soldier Rate: 54 P: 34 AK: 195 QRS: 44 QRSD: 96 T: 44 QT: 409 QTc: 389 Interpretive Statements SINUS BRADYCARDIA Compared to ECG 07/20/2021 09:08:54 Myocardial infarct finding no longer present Electronically Signed On 07-29-2023 13:41:47 EDGE RUNNER by Vikas Elias M.D. [id number]
--- NOTE | 2023-07-29 12:59 | CTR_ITS ---
PROCEDURE INFORMATION: Exam: CT Head Without Contrast Exam date and time: 07/29/2023 1:02 PM Age: 83 years old Clinical indication: Stroke-like symptoms; Altered mental status/memory loss; Additional info: Symptoms of acute stroke TECHNIQUE: Imaging protocol: Computed tomography of the head without contrast. Radiation optimization: All CT scans at this facility use at least one of these dose optimization techniques: automated exposure control; mA and/or kV adjustment per patient size (includes targeted exams where dose is matched to clinical indication); or iterative reconstruction. Other technique: STROKE PROTOCOL was implemented. COMPARISON: No relevant prior studies available. RADIATION DOSE METRICS: Total DLP (mGy-cm): 1191 FINDINGS: Brain: No intracranial hemorrhage. No acute infarct. No extra-axial fluid collection. Moderate periventricular and subcortical white matter hypodensities compatible with chronic small vessel ischemic disease. Diffuse cerebral atrophy, consistent with patient's age. Cerebral ventricles: Ventricles are in proportion to the degree of atrophy. Paranasal sinuses: Visualized sinuses are unremarkable. No fluid levels. Mastoid air cells: Visualized mastoid air cells are well aerated. Bones/joints: Unremarkable. No acute fracture. Soft tissues: Unremarkable. CT/CT head thrombolytic [id number] IMPRESSION: No acute intracranial abnormality. ASSESSMENT: ASPECTS ([place] Stroke Program Early CT Score) is 10.
--- NOTE | 2023-07-29 13:21 | ED_ITS ---
HPI - Altered Mental Status 2 General: Chief Complaint: Altered Mental Status Stated Complaint: sent by hannah serrano Time Seen by Provider: 07/29/23 12:59 Source: patient Mode of arrival: ambulatory Limitations: no limitations History of Present Illness: 83-year-old male is sent here from [facility] patient this morning is noticed to be confused he also has right-sided facial droop. I did speak further with his she states that last time she saw him normal was last night at 8 PM at the time they went to bed she states he woke up before her went to breakfast she spoke to someone that he ate breakfast with that 7 and states that he was not his normal self at that time either. Patient is quite confused here does have a right-sided facial droop. Review of Systems 2 General: Reports: ROS unobtainable due to mental status PFSH ED 2 PFSH: Medical History Sore throat (viral) Left knee pain Primary osteoarthritis of right knee Aortic stenosis Dyslipidemia HTN (hypertension) Surgical History S/P cholecystectomy S/P carpal tunnel release S/P bunionectomy S/P knee replacement Hx of total knee arthroplasty right Family History Mother CAD (coronary artery disease) Myocardial infarction Brother CAD (coronary artery disease) Myocardial infarction Social History Smoking and tobacco/nicotine status: never used tobacco/nicotine Alcohol intake: never Substance/Drug Use: never Household members: spouse Marital status: service: Yes branch: [employer] Current occupational status: retired 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 Current gender identity: Male Ashley/Taoism: Alevism Physical Exam 2 Const: COMMON NORMALS: negative for patient oriented x3 GENERAL APPEARANCE: ill appearing HENMT: COMMON NORMALS: normocephalic and atraumatic HEAD & SCALP: n ormocephalic and atraumatic Eye: COMMON NORMALS: Equal, round and reactive pupils present and EOMs intact bilaterally PUPIL: Yes Equal, round and reactive pupils present Neck/C-Spine: COMMON NORMALS: full ROM and supple Chest: COMMONS NORMALS: normal inspection of the chest and normal palpation of entire chest wall Resp: COMMON NORMALS: normal respiratory effort, No retractions, No use of accessory muscles and clear to auscultation bilaterally AUSCULTATION: clear to auscultation bilaterally Cardio: COMMON NORMALS: regular rate, regular rhythm and No murmurs present (Cardio) RATE: regular rate RHYTHM: regular rhythm Extremity: COMMON NORMALS: normal to inspection and full ROM Neuro: COMMON NORMALS: negative for patient oriented x3 OTHER: right sided facial droop noted Psych: COMMON NORMALS: mental status grossly normal, Normal thought process present and cooperative THOUGHT PROCESS: Normal thought process present Skin: COMMON NORMALS: no rashes or lesions noted and no wounds GENERAL SKIN EXAM: no rashes or lesions noted Course 2 Vital Signs: Vital signs: Vital Signs Temperature 97.9 F 07/29/23 12:47 Pulse Rate 55 L 07/29/23 12:47 Respiratory Rate 16 07/29/23 12:47 Blood Pressure 150/77 07/29/23 12:47 Pulse Oximetry 94 07/29/23 12:47 Oxygen Delivery Me thod Room Air 07/29/23 12:47 MDM - Altered Mental Status Medical Decision Making Patient presents here with confusion with right sided facial droop CT head CT angio are negative he is outside the window for lytics patient was seen by neurology in the ER will admit at this time. Medical Records I reviewed the patient's medical records. Lab Data I reviewed the patient's lab results. 07/29/23 13:16 07/29/23 13:[address] 07/29/23 12:59 IMPRESSION: No acute intracranial abnormality. ASSESSMENT: ASPECTS ([place] Stroke Program Early CT Score) is 10. Head/Neck CTA 07/29/23 13:30 IMPRESSION: No large vessel stenosis or occlusion. IMPRESSION: No stenosis or occlusion. REFERENCES: NASCET CRITERIA. The degree of stenosis in the cervical segment of the internal carotid artery is based on NASCET criteria. Normal is no stenosis. Mild is less than 50% stenosis. Moderate is 50-69% stenosis. Severe is 70% to 99% stenosis. Total occlusion is no detectable patent lumen. Laboratory Results WBC 7.81 10^3/uL (3.29-11.43) 07/29/23 13:16 RBC 5.25 10^6/uL (3.85-5.65) 07/29/23 13:16 Hgb 16.20 g/dL (11.27-16.99) 07/29/23 13:16 Hct 48.7 % (37-53) 07/29/23 13:16 MCV 92.8 fl (82-101) 07/29/23 13:16 MCH 30.9 pg (27-33) 07/29/23 13:16 MCHC 33.3 g/dL (30-55) 07/29/23 13:16 RDW 13.5 % (12.1-15.1) 07/29/23 13:16 Plt Count 216 10^3/cmm (157-399) 07/29/23 13:16 MPV 10.6 fL (7.4-10.4) H 07/29/23 13:16 Neut % (Auto) 61.4 % 07/29/23 13:16 Lymph % (Auto) 23.8 % 07/29/23 13:16 [place] % (Auto) 10.0 % 07/29/23 13:16 Eos % (Auto) 3.5 % 07/29/23 13:16 Baso % (Auto) 0.9 % 07/29/23 13:16 Neut # (Auto) 4.80 10^3/uL (1.8-7.7) 07/29/23 13:16 Lymph # (Auto) 1.9 10^3/uL (0.8-4.8) 07/29/23 13:16 [place] # (Auto) 0.8 10^3/uL (0.2-0.9) 07/29/23 13:16 Eos # (Auto) 0.3 10^3/uL (0.0-0.8) 07/29/23 13:16 Baso # (Auto) 0.1 10^3/uL (0.0-0.1) 07/29/23 13:16 Nucleated RBC % (auto) 0 % 07/29/23 13:16 Nucleated RBCs # 0.0 /100WBC 07/29/23 13:16 PT 13.70 SECONDS (12.1-14.9) 07/29/23 13:16 INR 1.02 (0.8-1.2) 07/29/23 13:16 APTT 30.8 SECONDS (23.9-36.7) 07/29/23 13:16 Sodium 139 mmol/L (136-145) 07/29/23 13:16 Potassium 4.6 mmol/L (3.5-5.1) 07/29/23 13:16 Chloride 104 mmol/L (98-107) 07/29/23 13:16 Carbon Dioxide 25 mmol/L (22-29) 07/29/23 13:16 Anion Gap 14.6 (5-19) 07/29/23 13:16 BUN 23 mg/dL (8-23) 07/29/23 13:16 Creatinine 1.0 mg/dL (0.7-1.2) 07/29/23 13:16 GFR Calculation Not Reportable 07/29/23 13:16 Glucose 93 mg/dL (65-115) 07/29/23 13:16 POC Glucose 88 mg/dL (70-110) 07/29/23 13:10 Calculated Osmolality 291 mOsm/kg (285-295) 07/29/23 13:16 Calcium 9.6 mg/dL (8.5-10.5) 07/29/23 13:16 Total Bilirubin 0.7 mg/dL (0.15-1.2) 07/29/23 13:16 AST 19 U/L (0-40) 07/29/23 13:16 ALT 12 U/L (0-41) 07/29/23 13:16 Alkaline Phosphatase 88 U/L (40-130) 07/29/23 13:16 Total Protein 8.0 g/dL (6.6-8.7) 07/29/23 13:16 Albumin 4.6 g/dL (3.5-5.2) 07/29/23 13:16 Globulin 3.4 g/dL (1.3-4.6) 07/29/23 13:16 TSH 2.90 uIU/mL (0.27-4.20) 07/29/23 13:16 All radiology interpretation(s) finalized by discharge EKG Data EKG 1: I personally reviewed and interpreted this EKG as follows: EKG interpretation date: 07/29/23 EKG interpretation time: 13:12 Interpretation: sinus randell hr [address] or wave abnormalities qrs 96 qtc 395 Discharge Plan Discharge Patient Disposition: Admitted As Inpatient Clinical Impression: CVA (cerebral vascular accident) Condition: Stable Prescriptions: No Action levothyroxine 75 mcg capsule 75 mcg PO QDAY omega-3 fatty acids 1,000 mg PO DAILY pyridoxine (vitamin B6) 25 mg lozenge on a handle 25 mg PO QDAY Drysol 20 % solution 1 applic topical DAILY Qty: 35 2RF ferrous sulfate 325 mg (65 mg iron) Tablet 325 mg PO DAILY hydrocodone-acetaminophen 5-325 mg tablet 1 tab PO Q6H PRN (Reason: pain) Qty: 14 0RF Naprosyn 500 mg tablet 500 mg PO BID PRN (Reason: pain) Qty: 20 0RF Referrals: Yung Sheridan DO [Primary Care Provider] - Patient Instructions: Altered Mental Status (ED) Coding Level of Care Code ED Windows Deployment Technician for Murray Brown
--- NOTE | 2023-07-29 13:30 | CTR_ITS ---
PROCEDURE INFORMATION: Exam: CTA Head With Contrast, Arteriography Exam date and time: 07/29/2023 1:36 PM Age: 83 years old Clinical indication: Stroke-like symptoms; Other: Confusion, episode of unresponsiveness; Additional info: AMS TECHNIQUE: Imaging protocol: Computed tomographic angiography of the head with contrast. Exam focused on the arteries. 3D rendering (Not supervised by radiologist): MIP and/or 3D reconstructed images were created by the technologist. Radiation optimization: All CT scans at this facility use at least one of these dose optimization techniques: automated exposure control; mA and/or kV adjustment per patient size (includes targeted exams where dose is matched to clinical indication); or iterative reconstruction. Contrast material: OMNI 350; Contrast volume: 100 ml; Contrast route: INTRAVENOUS (IV); COMPARISON: CT head thrombolytic [id number] 07/29/2023 1:02 PM RADIATION DOSE METRICS: Total DLP (mGy-cm): 414.32 FINDINGS: Limitations: Multiple dental fillings with associated beam hardening artifact limits evaluation. ANTERIOR CIRCULATION: Right internal carotid artery: Intracranial segment is patent with no significant stenosis. No aneurysm. Right middle cerebral artery: No occlusion or significant stenosis. No aneurysm. Right anterior cerebral artery: Arises from the left anterior communicating artery No occlusion or significant stenosis. No aneurysm. Left internal carotid artery: Intracranial segment is patent with no significant stenosis. No aneurysm. Left middle cerebral artery: No occlusion or significant stenosis. No aneurysm. Left anterior cerebral artery: No occlusion or significant stenosis. No aneurysm. POSTERIOR CIRCULATION: Right vertebral artery: No occlusion or significant stenosis. No aneurysm. Left vertebral artery: No occlusion or significant stenosis. No aneurysm. Basilar artery: No occlusion or significant stenosis. No aneurysm. Right posterior cerebral artery: origin. No occlusion or significant stenosis. No aneurysm. Left posterior cerebral artery: No occlusion or significant stenosis. No aneurysm. Brain: No definite mass, mass effect, or midline shift. Cerebral ventricles: No ventriculomegaly. Bones/joints: Unremarkable. No acute fracture. Soft tissues: Unremarkable. PROCEDURE INFORMATION: Exam: CTA Neck With Contrast Exam date and time: 07/29/2023 1:36 PM Age: 83 years old Clinical indication: Stroke-like symptoms; Other: Confusion, episode of unresponsiveness; Additional info: AMS TECHNIQUE: Imaging protocol: Computed tomographic angiography of the neck with contrast. Exam focused on the cervical segments of the vasculature. 3D rendering (Not supervised by radiologist): MIP and/or 3D reconstructed images were created by the technologist. Radiation optimization: All CT scans at this facility use at least one of these dose optimization techniques: automated exposure control; mA and/or kV adjustment per patient size (includes targeted exams where dose is matched to clinical indication); or iterative reconstruction. Contrast material: OMNI 350; Contrast volume: 100 ml; Contrast route: INTRAVENOUS (IV); COMPARISON: CT head thrombolytic [id number] 07/29/2023 1:02 PM RADIATION DOSE METRICS: Total DLP (mGy-cm): 414.32 FINDINGS: Right common carotid artery: No stenosis. No dissection or occlusion. Right internal carotid artery: Atherosclerotic calcifications at the bulb No stenosis of the extracranial segment. No dissection or occlusion. Right external carotid artery: Moderate stenosis at the origin. Left common carotid artery: No stenosis. No dissection or occlusion. Left internal carotid artery: Atherosclerotic calcifications at the bulb No stenosis of the extracranial segment. No dissection or occlusion. Left external carotid artery: No occlusion or stenosis of the origin. Right vertebral artery: No stenosis. No dissection or occlusion. Left vertebral artery: The left vertebral artery arises from the aortic arch. No occlusion or significant stenosis. Soft tissues: Normal. No significant soft tissue swelling. Bones/joints: Severe degenerative changes of the right shoulder. Multilevel facet arthrosis and uncovertebral hypertrophy in the cervical spine. CT/CT angio headneck* [id number] IMPRESSION: No large vessel stenosis or occlusion. IMPRESSION: No stenosis or occlusion. REFERENCES: NASCET CRITERIA. The degree of stenosis in the cervical segment of the internal carotid artery is based on NASCET criteria. Normal is no stenosis. Mild is less than 50% stenosis. Moderate is 50-69% stenosis. Severe is 70% to 99% stenosis. Total occlusion is no detectable patent lumen.
[2023-07-29 13:31] LABS: Glucose Point of Care 88 mg/dL (70-110)
--- NOTE | 2023-07-29 13:35 | P.CONIM_ITS ---
Providers/Reason For Consult 2 Consulting Physician/Specialty*: Luke Dye MD neurology and epilepsy Reason for Consult*: Code stroke emergency room bed #10 at 1 PM on 07/29/2023 Primary Care Provider: Yung Sheridan DO History of Present Illness History of Present Illness Raul Gomez is a 83 year old male who resides in a care facility with his . According to the patient's , the patient has a history of hypothyroidism treated with Synthroid. The patient's stated that she and her went to bed around 8:30 PM on 07/28/2023. She stated that this is unusual for them because they normally go to bed around 930 or 10 PM. The patient stated that their bed was not made up and the bed sheets were not changed by the care facility where she and her resides and so she and her slept in recliners in the living room. The patient's stated that she was very tired because she had did several chores and they both woke up around 6:30 AM on 07/29/2023 which is also unusual for them because they usually wake up around 4 or 5 AM every morning. The patient's stated that her got dressed and went downstairs to have breakfast. The patient's stated that she did not go down for breakfast this morning on 07/29/2023. The patient stated that she and her both fell asleep again around 9 AM on 07/29/2023 and she woke up around 11:15 AM on 07/29/2023 but her was not in his recliner nor was he in the bathroom. She stated she did not check their bedroom so she thought he had went down for lunch. She stated that prior to going down to lunch she did see her had return to the recliner chair and she asked him if he was going for lunch but he did not answer her and did not follow her down for lunch. She stated that after returning from lunch she noticed that her was still sitting in the chair. She attempted to talk with her but he was having difficulty speaking and kept repeating that he was fine. The patient's stated she contacted the nurse and the patient was brought to [facility] emergency room for evaluation and transferred to the CT scanner for stat CT scan of his head. And transferred to emergency room bed #10. The patient stated that she called down to the dining area and they informed her that when the patient went down for breakfast on the morning of 07/29/2023 he did not appear like himself and ordered breakfast twice and ordered 2 different breakfast this which was unusual for the patient. The patient's stated the patient's mind is usually very sharp. But, in the emergency room the patient was confused and was unable to give the current month or year. NIH score =6. Code stroke was initiated at 1 PM on 07/29/2023 and I arrived to evaluate the patient in the emergency room at 1:04 PM on 07/29/2023. I reviewed the patient's noncontrast head CT scan shortly after that it was performed and the patient was being transferred back to the emergency room department bed #10. I did not observe any acute findings. Official reading of the stat CT scan was pending at the time of my neurological evaluation. Stat noncontrast head CT performed on 07/29/2023 revealed no acute findings per radiology. Drug allergies: None Current home medications: Synthroid 75 mcg p.o. daily Naproxen 500 mg p.o. twice daily, as needed Iron sulfate 325 mg p.o. daily Hydrocodone 20 MME/acetaminophen 1 p.o. every 6 hours as needed pain [place]-3 fatty acid 1000 mg p.o. 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 Chronic low back pain Primary osteoarthritis of the left knee Total left knee arthroplasty Dyslipidemia Hypertension Medications/Allergies Home Medications Medication Instructions Recorded Confirmed Last Taken Type levothyroxine 75 mcg capsule 75 mcg PO QDAY 07/22/19 06/03/23 07/20/21 History omega-3 fatty acids [Fish Oil 1,000 mg PO DAILY 07/22/19 06/03/23 07/19/21 History Concentrate] pyridoxine (vitamin B6) 25 mg pop 25 mg PO QDAY 07/22/19 06/03/23 07/19/21 History ferrous sulfate 325 mg (65 mg 325 mg PO DAILY 07/20/21 06/03/23 07/19/21 History iron) tablet aluminum chloride 20 % topical 1 applic topical DAILY #35 mL 07/29/22 06/03/23 Unknown Rx solution (Drysol) hydrocodone 5 mg-acetaminophen 325 1 tab PO Q6H PRN pain #14 tabs 08/08/22 06/03/23 Unknown Rx mg tablet naproxen 500 mg tablet (Naprosyn) 500 mg PO BID PRN pain #20 tabs 08/08/22 06/03/23 Unknown Rx Allergies Allergy/AdvReac Type Severity Reaction Status Date / Time No Known Allergies Allergy Verified 07/29/23 12:45 PFSH Acute 2 PFSH: Medical History Sore throat (viral) Left knee pain Primary osteoarthritis of right knee Aortic stenosis Dyslipidemia HTN (hypertension) Surgical History S/P cholecystectomy S/P carpal tunnel release S/P bunionectomy S/P knee replacement Hx of total knee arthroplasty right Family History Mother CAD (coronary artery disease) Myocardial infarction Brother CAD (coronary artery disease) Myocardial infarction Social History Smoking and tobacco/nicotine status: never used tobacco/nicotine Alcohol intake: never Substance/Drug Use: never Household members: spouse Marital status: service: Yes branch: [employer] Current occupational status: retired 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 O2 saturations 94% on room air NIH score = 6 (patient was unable to answer both questions, patient had drift in the right upper extremity, clumsiness in the right upper extremity, mild dysarthria, and neglect on double sensory stimulation). The patient was cooperative but confused and displayed some intermittent word finding difficulty/nonfluent aphasia with some mild dysarthria. Cranial nerves II through XII intact without obvious facial weakness. Visual brady are full. Full via confrontation. Extraocular movements grossly intact. There were no nystagmus. Motor testing revealed 4/5 strength in the proximal right arm and 5/5 distally. There was a drift in the right upper extremity. Motor testing in the right leg and left arm and left leg were 5/5. Sensory examination was intact to touch. There was extinction on double sensory stimulation. Patient did display some weakness/clumsiness in the right upper extremity. Deep tendon reflexes 1-2+ bilaterally. Plantar responses flexor bilaterally. There was no clonus. Gait was not tested since patient was on the gurney with EKG/telemetry electrodes. Throat clear. Lungs clear. Heart regular rhythm and rate. Extremities were negative for clubbing cyanosis or edema. Data 07/29/23 13:16 07/29/23 13:16 A&P Assessment and plan (1) CVA (cerebral vascular accident): Impression: 1. Clinical examination suggestive of left subcortical versus cortical infarction manifested as confusion, nonfluent aphasia and right upper extremity weakness. Patient's last known well could not be determined and therefore the patient was not a candidate for tenecteplase and no intravenous thrombolytic was administered. The patient will be scheduled for CT angiogram of the head and neck to assess for large vessel occlusion while in the emergency room 2. Hypothyroidism 3. Peripheral vascular disease 4. Lumbar spondylosis with spinal stenosis with reported neurogenic claudication, addressed by another physician Plan: 1. Agree with CT angiogram of the head and neck to assess for large vessel occlusion to determine if patient is a candidate for thrombectomy 2. Agree with metabolic lab and serum glucose 3. Recommend starting patient on aspirin 325 mg p.o. every morning with food with cholesterol-lowering agent per NIH stroke protocol starting today 4. Recommend discontinuing naproxen and not using nonsteroidal anti- inflammatory medication since these medications have been reported to be associated with potential increased risk for strokes and myocardial infarctions 5. Recommend obtaining 2D echocardiogram to assess for embolic source for stroke if not already performed recently 6. If CT angiogram of the head and neck is negative for large vessel occlusion, recommend admitting patient and treating stroke conservatively as described above and monitor with neurochecks per NIH stroke protocol 7. No hypotonic fluids 8. Keep head of bed elevated to 30 degrees as tolerated Consult Attestations 2 Medical Necessity Statement: The patient was evaluated by neurology for code stroke ER room #10 Coding Level of Care Code 07744 Diagnoses CVA (cerebral vascular accident) I63.9
[2023-07-29 13:38] LABS: Basophils # 0.1 10^3/uL (0.0-0.1); Basophils % 0.9 %; Eosinophils # 0.3 10^3/uL (0.0-0.8); Eosinophils % 3.5 %; Hematocrit 48.7 % (37-53); Lymphocytes # 1.9 10^3/uL (0.8-4.8); Lymphocytes % 23.8 %; Mean Corpuscular HGB Conc 33.3 g/dL (30-55); Mean Corpuscular Hemoglobin 30.9 pg (27-33); Mean Corpuscular Volume 92.8 fl (82-101); Mean Platelet Volume 10.6 fL (7.4-10.4); Monocytes # 0.8 10^3/uL (0.2-0.9); Neutrophils % 61.4 %; Nucleated Red Blood Cells % 0 %; Platelet Count 216 10^3/cmm (157-399); Red Blood Count 5.25 10^6/uL (3.85-5.65); Red Cell Distribution Width 13.5 % (12.1-15.1); White Blood Count 7.81 10^3/uL (3.29-11.43)
[2023-07-29 13:49] LABS: INR 1.02 (0.8-1.2)
[2023-07-29] MEDS: iohexol 350 mg/mL 500 mL Btl (per mL) IV (13:49)
[2023-07-29 13:50] LABS: Partial Thromboplastin Time 30.8 SECONDS (23.9-36.7)
[2023-07-29 14:12] LABS: Alanine Aminotransferase 12 U/L (0-41); Albumin Level 4.6 g/dL (3.5-5.2); Alkaline Phosphatase 88 U/L (40-130); Anion Gap 14.6 (5-19); Aspartate Amino Transferase 19 U/L (0-40); Blood Urea Nitrogen 23 mg/dL (8-23); Calcium 9.6 mg/dL (8.5-10.5); Carbon Dioxide 25 mmol/L (22-29); Chloride 104 mmol/L (98-107); Globulin 3.4 g/dL (1.3-4.6); Glucose 93 mg/dL (65-115); Osmolality Calculated 291 mOsm/kg (285-295); Potassium 4.6 mmol/L (3.5-5.1); Sodium 139 mmol/L (136-145); Total Bilirubin 0.7 mg/dL (0.15-1.2)
[2023-07-29 14:40] LABS: Amphetamines Screen Urine Negative (Negative); Barbiturates Screen Urine Negative (Negative); Benzodiazepines Screen Urine Negative (Negative); Cocaine Screen Urine Negative (Negative); Opiate Screen Urine Negative (Negative); PCP Screen Urine Negative (Negative); THC Screen Urine Negative (Negative)
[2023-07-29 14:44] LABS: Add Urine Microscopic? YES; Bilirubin Urine Neg (Negative); Blood Urine Neg (Negative); Glucose Urine UA Norm (Normal); Ketones Urine Negative (Negative); Leukocyte Esterase Urine Negative (Negative); Nitrate Urine Negative (Negative); Protein Urine Trace (Negative); Specific Gravity, Urine 1.015 (1.005-1.030); Urine Appearance Clear (CLEAR); Urine Color Yellow (Yellow); Urobilinogen Urine Norm (Negative); pH Urine 5 (5-7)
[2023-07-29] MEDS: aspirin 81 mg Chew Tablet 324 MG PO (15:01)
[2023-07-29 15:04] LABS: Add Urine Culture? No; Amorphous Sediment Urine TRACE /hpf; Mucus Urine TRACE /hpf; RBC Urine 0-4 /hpf (0-2); WBC Urine RARE /hpf (0-5)
--- NOTE | 2023-07-29 16:31 | P.HP_ITS ---
Providers/Chief Complaint 2 Primary Care Provider: Yung Sheridan DO Chief Complaint: sent by hannah serrano History of Present Illness Raul Gomez is a 83 year old male lives with his at the facility brought in for confusion difficulty speaking, code stroke was called, NIH score was 6 patient was evaluated by neurology right away, he was deemed not a candidate for TNKase because last known well time was not able to be differentiated. As per the he slept in a different room around 830 yesterday patient woke up in the morning and ate breakfast twice which is unusual, took a nap in the morning after breakfast, when she checked on her later in the day he was not able to speak at that time nurses were called and he was brought to the ER for further evaluation. He is very conversive and mentally sharp as per the . Review of Systems 2 General: Reports: ROS unobtainable due to medical condition Medications/Allergies Home Medications Medication Instructions Recorded Confirmed Last Taken Type levothyroxine 75 mcg capsule 75 mcg PO QDAY 07/22/19 07/29/23 07/20/21 History ferrous sulfate 325 mg (65 mg 325 mg PO DAILY 07/20/21 07/29/23 07/19/21 History iron) tablet vitamin B12 500 mcg-folic acid 400 1 tab PO DAILY 07/29/23 07/29/23 Unknown History mcg tablet Allergies Allergy/AdvReac Type Severity Reaction Status Date / Time No Known Allergies Allergy Verified 07/29/23 12:45 PFSH Acute 2 PFSH: Medical History Sore throat (viral) Left knee pain Primary osteoarthritis of right knee Aortic stenosis Dyslipidemia HTN (hypertension) Surgical History S/P cholecystectomy S/P carpal tunnel release S/P bunionectomy S/P knee replacement Hx of total knee arthroplasty right Family History Mother CAD (coronary artery disease) Myocardial infarction Brother CAD (coronary artery disease) Myocardial infarction Social History Smoking and tobacco/nicotine status: never used tobacco/nicotine Alcohol intake: never Substance/Drug Use: never Household members: spouse Marital status: service: Yes branch: [employer] Current occupational status: retired 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 Current gender identity: Male Ashley/Oriental Orthodox: Mandaen Vitals/I&O/Wt Last Vital Signs Temp 97.9 F 07/29/23 12:47 Pulse 53 L 07/29/23 15:02 Resp 16 07/29/23 15:02 BP 159/81 07/29/23 15:02 Pulse Ox 94 07/29/23 15:02 O2 Del Method Room Air 07/29/23 15:02 Weight last 48 hrs Weight 80.739 kg Physical Exam 2 Narrative: nih score is 6 Right sided weakness Patient is oriented to himself however pleasant and cooperative Hemodynamically stable Patient is able to get up and walk around Very confused Abdomen soft Currently on room air Data 07/29/23 13:16 07/29/23 13:16 A&P Assessment and plan (1) HTN (hypertension): (2) Aortic stenosis: (3) CVA (cerebral vascular accident): Qualifiers: CVA mechanism: unspecified Qualified Code(s): I63.9 - Cerebral infarction, unspecified Plan Acute CVA Not a candidate for TNKase And is close 6 Last known well time is unknown Appreciate neuro recommendations CT head, CTA head and neck unremarkable Will request B12, TSH, PT OT and ST Started patient on dual antiplatelet therapy Patient takes levothyroxine and vitamin B12. Lives with his at the facility Likely will be able to go back to the facility by tomorrow Will request echo with bubble study Monitor on telemetry for any significant arrhythmia Full code Will put him on dysphagia diet Attestations 2 Medical Necessity Statement*: Anticipating discharge within 48 hours Diagnoses HTN (hypertension) I10 Aortic stenosis I35.0 CVA (cerebral vascular accident) I63.9 CVA mechanism: unspecified
--- NOTE | 2023-07-29 16:32 | USCV_ITS ---
Raul Gomez Age: 83 Gender: M : 1940 Exam Date: 07/29/2023 18:20 Ordering Phys: Molly Smith MD Technologist: Reza West Exam Location: [facility] [place] Indication: RIGHT facial droop, confusion. No history of cardiac intervention per patient. A Bubble Study is ordered. BP: 159 / 81 HR: 50 Rhythm: Sinus bradycardia Technical Quality: Adequate MEASUREMENTS (Male / Female) Normal Values 2D ECHO LV Diastolic Diameter PLAX 4.5 cm 4.2 - 5.9 / 3.9 - 5.3 cm LV Systolic Diameter PLAX 3.1 cm IVS Diastolic Thickness 1.3 cm 0.6 - 1.0 / 0.6 - 0.9 cm IVS Systolic Thickness 1.9 cm LVPW Diastolic Thickness 1.2 cm 0.6 - 1.0 / 0.6 - 0.9 cm LVPW Systolic Thickness 1.8 cm LVOT Diameter 2.2 cm LV Ejection Fraction 2D Teich 57.7 % LV Ejection Fraction MOD 2C 74.2 % LV Ejection Fraction 2C AL 75.9 % LA Diameter 5.0 cm LA Width 5.4 cm LA Height 6.8 cm RA Width 2.6 cm RA Height 4.9 cm Aorta at Sinotubular Diameter 3.0 cm IVC Diameter 1.3 cm M-MODE Aortic Annulus Diameter 3.2 cm LA Ao Ratio MM 1.6 MV E Point Septal Separation 0.5 cm DOPPLER AV Peak Velocity 290.0 cm/s LVOT Peak Velocity 74.0 cm/s AV Area Cont Eq vti 1.2 cm squared AV Area Cont Eq pk 0.9 cm squared MV Peak Velocity 101.0 cm/s MV Area PHT 1.9 cm squared Mitral E to A Ratio 0.6 MV E' Velocity 27.5 cm/s Mitral E to MV E' Ratio 7.7 Mitral E to LV E' Lateral Ratio 8.1 Mitral E to LV E' Septal Ratio 7.3 TR Peak Velocity 241.3 cm/s TR Peak Gradient 23.3 mmHg TV Peak E Velocity 35.0 cm/s Right Atrial Pressure 10.0 mmHg Pulmonary Artery Systolic Pressu 33.3 mmHg PV Peak Velocity 126.0 cm/s RV Acceleration Time 0.1 s RV Ejection Time 0.4 s RV AcT/ET 0.2 FINDINGS Left Ventricle Normal left ventricular size, systolic function and wall thickness, with no regional wall motion abnormalities. Grade I/IV diastolic dysfunction (abnormal relaxation filling pattern), normal to mildly elevated filling pressures. Left ventricular ejection fraction is estimated at 60 %. Right Ventricle Normal right ventricular size and systolic function. Normal right ventricular systolic pressure. Right Atrium The right atrium is normal in size. Left Atrium Moderately increased left atrial size. Mitral Valve Structurally normal mitral valve. Trace mitral valve regurgitation. Aortic Valve Moderate aortic valve calcification. [id number] aortic valve regurgitation. Mild aortic valve stenosis, mean gradient 16.8 mmHg, SUMMER 1.2 cm squared. Tricuspid Valve Structurally normal tricuspid valve. Mild tricuspid valve regurgitation. Pulmonic Valve Pulmonic valve not well visualized. Pericardium Normal pericardium without effusion. Aorta Normal ascending aorta dimension. IVC The inferior vena cava appears normal. CONCLUSIONS Normal left ventricular size, systolic function and wall thickness, with no regional wall motion abnormalities. Grade I/IV diastolic dysfunction (abnormal relaxation filling pattern), normal to mildly elevated filling pressures. Left ventricular ejection fraction is estimated at 60 %. Moderately increased left atrial size. Structurally normal mitral valve. Trace mitral valve regurgitation. Moderate aortic valve calcification. [id number] aortic valve regurgitation. Mild aortic valve stenosis, mean gradient 16.8 mmHg, SUMMER 1.2 cm squared. Bubble study was performed and was negative for shunt. No change from the previous echo dated [address] Andrew Conway MD (Electronically Signed) Final Date: 30 July 2023 08:10 S
[2023-07-29 17:28] LABS: Vitamin B12 711 pg/mL (232-1245)
[2023-07-29 17:41] LABS: Estmated Average Glucose 103; Hemoglobin A1C 5.2 % (4.0-6.0)
[2023-07-29] MEDS: sodium chloride 0.9% 1,000 ML 75 ML IV (17:50)
--- NOTE | 2023-07-29 19:11 | PC.NURSE ---
THIS NURSE ASSUMED CARE AT [id number]
[2023-07-29 19:20] LABS: Add Urine Microscopic? NO; Charge for UA Resulting for Rev
[2023-07-29 19:28] LABS: Bilirubin Urine Neg (Negative); Blood Urine Neg (Negative); Glucose Urine UA Norm (Normal); Ketones Urine 1+ (Negative); Leukocyte Esterase Urine Negative (Negative); Nitrate Urine Negative (Negative); Protein Urine Neg (Negative); Specific Gravity, Urine 1.015 (1.005-1.030); Urine Appearance Clear (CLEAR); Urine Color Yellow (Yellow); Urobilinogen Urine Norm (Negative); pH Urine 5 (5-7)
--- NOTE | 2023-07-29 19:47 | PC.NURSE ---
machine sign writer assumed care of pt 1935 report from Tia [facility]
[2023-07-30] VITALS (8 sets, daily range): BP systolic 126–170; BP diastolic 64–77; PULSE 47–88; RESP 15–18; TEMP 36.4–37; O2SAT 91–95
[2023-07-30 05:19] LABS: Basophils # 0.1 10^3/uL (0.0-0.1); Basophils % 0.9 %; Eosinophils # 0.3 10^3/uL (0.0-0.8); Eosinophils % 4.4 %; Lymphocytes # 1.7 10^3/uL (0.8-4.8); Lymphocytes % 24.7 %; Mean Corpuscular HGB Conc 33.2 g/dL (30-55); Mean Corpuscular Hemoglobin 30.9 pg (27-33); Mean Corpuscular Volume 93.2 fl (82-101); Mean Platelet Volume 10.6 fL (7.4-10.4); Monocytes # 0.8 10^3/uL (0.2-0.9); Monocytes % 11.4 %; Neutrophils # 4.01 10^3/uL (1.8-7.7); Neutrophils % 58.3 %; Nucleated Red Blood Cells % 0 %; Platelet Count 188 10^3/cmm (157-399); Red Blood Count 4.72 10^6/uL (3.85-5.65); Red Cell Distribution Width 13.4 % (12.1-15.1); White Blood Count 6.87 10^3/uL (3.29-11.43)
[2023-07-30 05:44] LABS: Blood Urea Nitrogen 17 mg/dL (8-23); Calcium 8.2 mg/dL (8.5-10.5); Carbon Dioxide 24 mmol/L (22-29); Chloride 104 mmol/L (98-107); Glucose 85 mg/dL (65-115); Magnesium 2.1 mg/dL (1.7-2.3); Osmolality Calculated 287 mOsm/kg (285-295); Phosphorus 2.6 mg/dL (2.5-4.5); Sodium 138 mmol/L (136-145)
[2023-07-30] MEDS: atorvastatin 40 mg Tablet 80 MG PO (08:14)
[2023-07-30] MEDS: aspirin 81 mg EC Tablet PO (08:14)
[2023-07-30] MEDS: clopidogrel 75 mg Tablet PO (08:14)
[2023-07-30] MEDS: sennosides-docusate Tablet 1 TAB PO (08:15)
[2023-07-30] MEDS: sodium chloride 0.9% 1,000 ML 75 ML IV (10:07)
--- NOTE | 2023-07-30 10:59 | PM.PN ---
Subjective Subjective: Admitted for CVA r/o, NIH score 6 in ED per neurology. Not a candidate for TNKase CT head negative seen at bedside today. confused, lack of coordination with PT passed swallow study. pending MRI mentation has improved per but still having confusion and memory issues. Vitals/I&O/Wt Last Vital Signs Temp 97.8 F 07/30/23 08:08 Pulse 47 L 07/30/23 08:08 Resp 15 07/30/23 08:08 BP 126/64 07/30/23 08:08 Pulse Ox 94 07/30/23 08:08 O2 Del Method Room Air 07/30/23 08:08 O2 Flow Rate 4 07/29/23 19:40 07/29/23 07/30/23 07/30/23 22:59 06:59 14:59 Intake Total 120 / 120 120 / 240 1120 / 1120 Output Total 200 / 200 Balance -80 / -80 120 / 40 1120 / 1120 Weight last 48 hrs Weight 177 lb 5 oz Weight 177 lb 12.8 oz Weight 178 lb Physical Exam Narrative: nih score is 7 Alert to self and place, not time or date. pleasant and cooperative Right sided weakness improving Hemodynamically stable ataxic gait with ambulation Very confused Abdomen soft Currently on room air Data 07/30/23 04:06 07/30/23 04:06 A&P Assessment and plan (1) HTN (hypertension): (2) Aortic stenosis: (3) CVA (cerebral vascular accident): Qualifiers: CVA mechanism: unspecified Qualified Code(s): I63.9 - Cerebral infarction, unspecified Plan Concern for Acute CVA CT head w/o contrast and CTA head/neck negative for hemorrhagic infarct Not a candidate for TNKase no abnormalities on blood work continue DAPT, lipitor continue some home medications has been seen by speech and physical therapy. significant defecits will attempt soft diet. advance as tolerated Lives with his at [facility] on discharge likely pending MRI bed alarm set Monitor on telemetry for any significant arrhythmia Full code Attestations Medical Necessity Statement*: will require 2 overnight stays for CVA Coding Level of Care Code 33229 Diagnoses HTN (hypertension) I10 Aortic stenosis I35.0 CVA (cerebral vascular accident) I63.9 CVA mechanism: unspecified
--- NOTE | 2023-07-30 11:04 | MR_ITS ---
WS: [id number] MRI BRAIN WITH AND WITHOUT CONTRAST HISTORY: Cerebral Vascular Accident COMPARISON: 07/29/2023 TECHNIQUE: Multiplanar imaging performed through the brain with MultiHance 18 ml's IV. Acute infarct involving the cortex of the LEFT temporal and parietal lobes. Multiple small cortical i nfarcts. No associated hemorrhage. There is additional advanced T2 and FLAIR signal abnormalities throughout the brain from small vessel chronic ischemic disease. This is advanced and confluent disease. Mild Ventricles and extra-axial spaces are normal. Clivus and pituitary gland are normal. Visualized posterior fossa and brainstem are also normal. Postcontrast images are negative for masses or vascular malformations. Dural venous sinuses are normal. Paranasal sinuses: Well aerated with no significant disease. Mastoid air cells: Normal. Calvarium and scalp: Normal. IMPRESSION: 1. Acute cortical infarcts along the LEFT temporal and parietal lobe. No hemorrhage. 2. Advanced small vessel ischemic disease and volume loss otherwise.
[2023-07-30] MEDS: gadobenate dimeglumine 20 mL vial IV (15:41)
[2023-07-31] MEDS: sodium chloride 0.9% 1,000 ML 75 ML IV (01:09)
[2023-07-31 04:30] VITALS: BP 160/60; PULSE 66; RESP 16; TEMP 36.8; O2SAT 94
[2023-07-31 07:30] VITALS: BP 159/76; PULSE 47; RESP 14; TEMP 36.7; O2SAT 93
[2023-07-31] MEDS: atorvastatin 40 mg Tablet 80 MG PO (08:43)
[2023-07-31] MEDS: sennosides-docusate Tablet 1 TAB PO (08:44)
[2023-07-31] MEDS: aspirin 81 mg EC Tablet PO (08:44)
[2023-07-31] MEDS: clopidogrel 75 mg Tablet PO (08:44)
--- NOTE | 2023-07-31 10:12 | PM.DCS ---
Discharge Providers Date of Admission: 07/30/23 09:27 Date of Discharge: July 31, 2023 Attending Provider at Admission: Molly Smith MD Attending Provider at Discharge: Molly Smith MD Primary Care Provider: Yung Sheridan DO Diagnoses at Discharge Discharge Diagnosis (1) HTN (hypertension): Status: Acute (2) Aortic stenosis: Status: Acute (3) CVA (cerebral vascular accident): Status: Acute Qualifiers: CVA mechanism: unspecified Qualified Code(s): I63.9 - Cerebral infarction, unspecified Reason for Visit Reason for Visit: sent by hannah serrano Hospital Course Hospital Course 83-year male who was admitted for management evaluation of confusion and right-sided weakness, he was deemed not a suitable candidate for TNKase as per neurology, code stroke was announced, he was treated with aspirin and Plavix, echo with bubble study did not show any shunt, he remained in sinus rhythm, MRI head showed vascular infarct consistent with his neurological changes. He is being discharged back to assisted living with physical therapy. Patient is requiring high-dose aspirin, he will be considered high risk for falls with recent stroke I would recommend wheelchair at the time of discharge to assist with ambulation for this patient. He has history of knee arthroplasty, chronic back pain, lumbar spondylosis he will be considered high risk for recurrent falls. Physical Exam Narrative: Right-sided weakness Oriented to himself Pleasant and cooperative S1, S2 Currently on room air Pleasant and cooperative \ No slurring of speech Discharge Data Studies Completed and Pending Completed Studies During Hospitalization Category Date Time Status CT head thrombolytic [id number] Stat Cat Scan 07/29/23 12:59 Completed CTA head neck [CT angio headneck* [id number]] Stat Cat Scan 07/29/23 13:30 Completed MR head wo/w con [id number] Urgent MRI 07/30/23 11:04 Completed CV. echo lmt wo/w bubble [id number] Stat Ultrasound 07/29/23 16:32 Completed Radiology Impressions Head CT 07/29/23 12:59 IMPRESSION: No acute intracranial abnormality. ASSESSMENT: ASPECTS ([place] Stroke Program Early CT Score) is 10. Head/Neck CTA 07/29/23 13:30 IMPRESSION: No large vessel stenosis or occlusion. IMPRESSION: No stenosis or occlusion. REFERENCES: NASCET CRITERIA. The degree of stenosis in the cervical segment of the internal carotid artery is based on NASCET criteria. Normal is no stenosis. Mild is less than 50% stenosis. Moderate is 50-69% stenosis. Severe is 70% to 99% stenosis. Total occlusion is no detectable patent lumen. Laboratory Results WBC 6.87 10^3/uL (3.29-11.43) 07/30/23 04:06 RBC 4.72 10^6/uL (3.85-5.65) 07/30/23 04:06 Hgb 14.60 g/dL (11.27-16.99) 07/30/23 04:06 Hct 44.0 % (37-53) 07/30/23 04:06 MCV 93.2 fl (82-101) 07/30/23 04:06 MCH 30.9 pg (27-33) 07/30/23 04:06 MCHC 33.2 g/dL (30-55) 07/30/23 04:06 RDW 13.4 % (12.1-15.1) 07/30/23 04:06 Plt Count 188 10^3/cmm (157-399) 07/30/23 04:06 MPV 10.6 fL (7.4-10.4) H 07/30/23 04:06 Neut % (Auto) 58.3 % 07/30/23 04:06 Lymph % (Auto) 24.7 % 07/30/23 04:06 [place] % (Auto) 11.4 % 07/30/23 04:06 Eos % (Auto) 4.4 % 07/30/23 04:06 Baso % (Auto) 0.9 % 07/30/23 04:06 Neut # (Auto) 4.01 10^3/uL (1.8-7.7) 07/30/23 04:06 Lymph # (Auto) 1.7 10^3/uL (0.8-4.8) 07/30/23 04:06 [place] # (Auto) 0.8 10^3/uL (0.2-0.9) 07/30/23 04:06 Eos # (Auto) 0.3 10^3/uL (0.0-0.8) 07/30/23 04:06 Baso # (Auto) 0.1 10^3/uL (0.0-0.1) 07/30/23 04:06 Nucleated RBC % (auto) 0 % 07/30/23 04:06 Nucleated RBCs # 0.0 /100WBC 07/30/23 04:06 PT 13.70 SECONDS (12.1-14.9) 07/29/23 13:16 INR 1.02 (0.8-1.2) 07/29/23 13:16 APTT 30.8 SECONDS (23.9-36.7) 07/29/23 13:16 Sodium 138 mmol/L (136-145) 07/30/23 04:06 Potassium 4.0 mmol/L (3.5-5.1) 07/30/23 04:06 Chloride 104 mmol/L (98-107) 07/30/23 04:06 Carbon Dioxide 24 mmol/L (22-29) 07/30/23 04:06 Anion Gap 14.0 (5-19) 07/30/23 04:06 BUN 17 mg/dL (8-23) 07/30/23 04:06 Creatinine 0.8 mg/dL (0.7-1.2) 07/30/23 04:06 GFR Calculation Not Reportable 07/30/23 04:06 Glucose 85 mg/dL (65-115) 07/30/23 04:06 POC Glucose 88 mg/dL (70-110) 07/29/23 13:10 Estimat Average Glucose 103 07/29/23 13:16 Hemoglobin A1c 5.2 % (4.0-6.0) 07/29/23 13:16 Calculated Osmolality 287 mOsm/kg (285-295) 07/30/23 04:06 Calcium 8.2 mg/dL (8.5-10.5) L 07/30/23 04:06 Phosphorus 2.6 mg/dL (2.5-4.5) 07/30/23 04:06 Magnesium 2.1 mg/dL (1.7-2.3) 07/30/23 04:06 Total Bilirubin 0.7 mg/dL (0.15-1.2) 07/29/23 13:16 AST 19 U/L (0-40) 07/29/23 13:16 ALT 12 U/L (0-41) 07/29/23 13:16 Alkaline Phosphatase 88 U/L (40-130) 07/29/23 13:16 Total Protein 8.0 g/dL (6.6-8.7) 07/29/23 13:16 Albumin 4.6 g/dL (3.5-5.2) 07/29/23 13:16 Globulin 3.4 g/dL (1.3-4.6) 07/29/23 13:16 Vitamin B12 711 pg/mL (232-1245) 07/29/23 13:16 TSH 2.90 uIU/mL (0.27-4.20) 07/29/23 13:16 TSH Cancelled 07/29/23 13:16 Urine Color Yellow (Yellow) 07/29/23 19:12 Urine Appearance Clear (CLEAR) 07/29/23 19:12 Urine pH 5 (5-7) 07/29/23 19:12 Ur Specific [place] 1.015 (1.005-1.030) 07/29/23 19:12 Urine Protein Neg (Negative) 07/29/23 19:12 Urine Glucose (UA) Norm (Normal) 07/29/23 19:12 Urine Ketones 1+ (Negative) H 07/29/23 19:12 Urine Blood Neg (Negative) 07/29/23 19:12 Urine Nitrate Negative (Negative) 07/29/23 19:12 Urine Bilirubin Neg (Negative) 07/29/23 19:12 Urine Urobilinogen Norm mg/dL (Negative) 07/29/23 19:12 Ur Leukocyte Esterase Negative (Negative) 07/29/23 19:12 Urine RBC 0-4 /hpf (0-2) H 07/29/23 14:20 Urine WBC Rare /hpf (0-5) 07/29/23 14:20 Ur Squamous Epith Cells None /hpf (0-5) 07/29/23 14:20 Amorphous Sediment Trace /hpf 07/29/23 14:20 Urine Bacteria None /hpf (NONE) 07/29/23 14:20 Urine Mucus Trace /hpf 07/29/23 14:20 Urine Opiates Screen Negative ng/mL (Negative) 07/29/23 14:20 Ur Barbiturates Screen Negative ng/mL (Negative) 07/29/23 14:20 Ur Phencyclidine Scrn Negative ng/mL (Negative) 07/29/23 14:20 Ur Amphetamines Screen Negative ng/mL (Negative) 07/29/23 14:20 U Benzodiazepines Scrn Negative ng/mL (Negative) 07/29/23 14:20 Urine Cocaine Screen Negative ng/mL (Negative) 07/29/23 14:20 U Marijuana (THC) Screen Negative ng/mL (Negative) 07/29/23 14:20 Vitals Last Vital Signs Temp 98.0 F 07/31/23 07:30 Pulse 47 L 07/31/23 07:30 Resp 14 07/31/23 07:30 BP 159/76 07/31/23 07:30 Pulse Ox 93 07/31/23 07:30 O2 Del Method Room Air 07/31/23 07:30 O2 Flow Rate 4 07/29/23 19:40 Discharge Plan Discharge Patient Disposition: Home Condition: Stable Prescriptions: New atorvastatin 40 mg Tablet 80 mg PO DAILY Qty: 90 0RF aspirin 325 mg tablet 325 mg PO DAILY Qty: 90 3RF Continued levothyroxine 75 mcg capsule 75 mcg PO QDAY ferrous sulfate 325 mg (65 mg iron) Tablet 325 mg PO DAILY vitamin E18-[id number] acid 500-400 mcg Tablet 1 tab PO DAILY Rx Instructions: administer with a meal Discharge Orders: Discharge Order (Routine); Ordered 07/31/23 Ordered By: Molly Smith Other Ambulatory Orders: DME: Wheelchair (Order) Location: None Selected Ordered By: Molly Smith Referrals: Edilma [Other] Yung Sheridan DO [Primary Care Provider] - Patient Instructions: Altered Mental Status (ED), Opioid Safety Discharge Attestations Time Spent in Discharge Care*: greater than 30 min Quality Metrics Clinical Quality Measures [ No reported AMI, CVA or VTE this stay] Coding Level of Care Code Acute Code for Chg Fwd Diagnoses HTN (hypertension) I10 Aortic stenosis I35.0 CVA (cerebral vascular accident) I63.9 CVA mechanism: unspecified
--- NOTE | 2023-07-31 10:41 | PC.CHAP ---
Pastoral Care Encounter/Spiritual Assessment Type of Contact [x] Declined dermatological surgeon visit [] Patient/Family/Request visit [] Outpatient visit [] Follow-up visit [] Physician referral [] Code/Alert [x] Routine visit [] Staff referral [] Actively dying [] Patient sleeping [] Family support [] [] Out of room [] Palliative care [] [] Receiving care in room [] Pre-surgical visit [] Trauma [] Long length of stay [] ICU visit [] Other: Relational/Emotional Strength [] Patient feels connected with others/family/visitors/staff [] Distress [] Loneliness/isolation [] Abandonment Spirituality of Patient [] Person of Ashley [] Attends Restoration of their Ashley [] Believes in Prayer [] Reads Bible or Episcopal materials [] There are Spiritual issues to be addressed Bowling Alley Attendant Interventions [] Prayer [] Active listening [] Non-anxious presence [] Spiritual/emotional support [] Crisis/trauma care [] Spiritual counseling [] Bereavement support [] Provided bereavement packet [] Provided Bible/devotional materials [] Provided toy/stuffed animal, coloring book to patient or family member [] Provided Communion [] Anointing/[place] [] Salvation [] Completed spiritual assessment [] Other: Impact on Illness or Injury [] Angry [] Fearful [] Anxious [] Often cries [] Exhaustion [] Unable to work [] Unable to attend jainism [] Unable to walk/stand [] Unable to read [] Unable to drive [] Unable to eat/drink [] Unable to sleep [] Unable to be with family [] Patient intubated [] Other: Summary Declined dermatological surgeon visit Time spent with patient 5 mins
[2023-07-31 14:25] VITALS: BP 159/76; PULSE 47; RESP 14; TEMP 36.7; O2SAT 93
== END 2023-07-31 12:00 | disposition home or self-care (01) | DRG 65 ==
LOC: ER 16:23 → MEDSURG 20:29
PROVIDERS: Admitting Provider Internal Medicine; Emergency Provider Emergency Medicine; PCP Electrodiagnostic Medicine; Visit Provider Internal Medicine
DX: I63.9 Cerebral infarction, unspecified (principal); G81.91 Hemiplegia, unspecified affecting right dominant side; R47.01 Aphasia; R29.810 Facial weakness; R29.706 NIHSS score 6; I35.0 Nonrheumatic aortic (valve) stenosis; E78.5 Hyperlipidemia, unspecified; I10 Essential (primary) hypertension; E03.9 Hypothyroidism, unspecified; I73.9 Peripheral vascular disease, unspecified; L74.519 Primary focal hyperhidrosis, unspecified; M48.062 Spinal stenosis, lumbar region with neurogenic claudication; M47.816 Spondylosis without myelopathy or radiculopathy, lumbar region; G89.29 Other chronic pain; M54.50 Low back pain, unspecified; Z96.652 Presence of left artificial knee joint
CPT/HCPCS: 36415; 36416; 70450; 70496; 70498; 70553; 80048; 80053; 80306; 81001; 81003; 82607; 82962; 83036; 83735; 84100; 84443; 85025; 85610; 85730; 92523; 92610; 93005; 96361; 96374; 97116; 97161; 97167; 97530; 99285; A9577; C8924; G0378; J7030; Q9967

== ENCOUNTER 2023-08-09 09:46 | Outpatient (CLI) | payer MEDICARE, OTHER, SELFPAY ==
[2023-08-09 10:16] LABS: Urine Appearance Cloudy (CLEAR); Urine Color Yellow (Yellow); pH Urine 5 (5-7)
[2023-08-09 10:17] LABS: Add Urine Culture? No; Add Urine Microscopic? YES; Amorphous Sediment Urine 2+ /hpf; Bacteria Urine TRACE /hpf; Bilirubin Urine Neg (Negative); Blood Urine Neg (Negative); Calcium Oxalate Crystals Urine 25-40 /hpf; Glucose Urine UA Norm (Normal); Ketones Urine Negative (Negative); Leukocyte Esterase Urine Negative (Negative); Nitrate Urine Negative (Negative); Protein Urine Neg (Negative); Urobilinogen Urine Norm (Negative)
== END 2023-08-09 09:47 | disposition home or self-care (01) ==
PROVIDERS: PCP Electrodiagnostic Medicine; Visit Provider Family Medicine
DX: N39.0 Urinary tract infection, site not specified (principal)
CPT/HCPCS: 81001; 87086

== ENCOUNTER 2023-08-12 09:50 | Outpatient (CLI) | payer MEDICARE, OTHER, SELFPAY ==
[2023-08-12 10:20] LABS: Add Urine Microscopic? NO; Bilirubin Urine Neg (Negative); Blood Urine Neg (Negative); Glucose Urine UA Norm (Normal); Ketones Urine Negative (Negative); Leukocyte Esterase Urine Negative (Negative); Nitrate Urine Negative (Negative); Protein Urine Neg (Negative); Urine Appearance Clear (CLEAR); Urine Color Yellow (Yellow); Urobilinogen Urine Norm (Negative); pH Urine 6 (5-7)
[2023-08-12 13:58] LABS: Charge for UA Resulting for Rev
== END 2023-08-12 09:51 | disposition home or self-care (01) ==
PROVIDERS: PCP Electrodiagnostic Medicine; Visit Provider Electrodiagnostic Medicine
DX: N39.0 Urinary tract infection, site not specified (principal)
CPT/HCPCS: 81003; 87086

== ENCOUNTER 2024-01-27 06:00 | Outpatient (RCR) | payer MEDICARE, OTHER, SELFPAY | END 2024-02-21 23:59 | disposition home or self-care (01) | LOC: GPS 06:00 | PROVIDERS: Visit Provider Electrodiagnostic Medicine | DX: G46.4 Cerebellar stroke syndrome (principal); R26.2 Difficulty in walking, not elsewhere classified; M62.81 Muscle weakness (generalized) | CPT/HCPCS: 97163 ==

== ENCOUNTER 2024-02-03 08:14 | Emergency (ER) | payer MEDICARE, OTHER, SELFPAY ==
[2024-02-03] VITALS (7 sets, daily range): BP systolic 113–134; BP diastolic 60–86; PULSE 44–51; RESP 11–17; TEMP 36.6; O2SAT 95–97
--- NOTE | 2024-02-03 08:22 | CT_ITS ---
WS: [id number] CT HEAD TECHNIQUE: Noncontrast CT of the head obtained from the skullbase to the vertex. CLINICAL INFORMATION: Trauma, fall closed head injury COMPARISON: MRI 07/30/[address] 07/29/23 DLP: 545.[address] scans at [facility] use at least one of these dose optimization techniques: automated e xposure control; mA and/or kV adjustment per patient size (includes targeted exams where dose is matc hed to clinical indication); or iterative reconstruction. FINDINGS: No evidence of intracranial hemorrhage or mass effect. Chronic infarcts with encephalomalacia LEFT pa rietal temporal and occipital lobes have evolved compared to the prior MRI. Moderate small vessel stephanie nges. Moderate parenchymal volume loss. Chronic infarcts LEFT lateral basal ganglia. Vascular calcifi cation. Paranasal sinuses and mastoid air cells are well aerated. Normal posterior nasopharynx. Paranasal sinuses and mastoid air cells are well aerated. .Soft tissue laceration RIGHT frontal CT/CT head wo con* [id number] IMPRESSION: 1. No evidence of intracranial hemorrhage or mass effect. 2. 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 3. Vascular calcification. 4. Moderate small vessel changes with moderate parenchymal volume loss. 5. No acute intracranial findings.
--- NOTE | 2024-02-03 08:38 | ED_ITS ---
Documented by User: Red Giron DO 02/03/24 14:58 HPI - Wound/Laceration 2 General: Chief Complaint: Wound/Laceration Stated Complaint: Fall Time Seen by Provider: 02/03/24 08:21 History of Present Illness: 83-year-old male presents emergency room via EMS from local [facility]. Patient was found on the floor he had fallen he is small laceration to the forehead just to the right of the midline. Patient is on Plavix. Uncertain of loss of consciousness. He also has a skin tear to his right hand deformity of his right third finger Related Data Home Medications Medication Instructions Recorded Confirmed levothyroxine 75 mcg capsule 75 mcg PO QDAY 07/22/19 02/03/24 atorvastatin 80 mg tablet 80 mg PO QPM 02/03/24 02/03/24 bisacodyl 5 mg tablet See Rx Instructions .Route 02/03/24 02/03/24 .COMPLEX PRN Constipation cetirizine 10 mg tablet (Zyrtec) 10 mg PO DAILY 02/03/24 02/03/24 clopidogrel 75 mg tablet 75 mg PO DAILY 02/03/24 02/03/24 fluoxetine 10 mg capsule 10 mg PO DAILY 02/03/24 02/03/24 magnesium hydroxide 400 mg/5 mL See Rx Instructions .Route 02/03/24 02/03/24 oral suspension (Milk of Magnesia) .COMPLEX PRN Constipation naproxen 500 mg tablet 500 mg PO Q12H PRN Pain 02/03/24 02/03/24 sodium phosphates 19 gram-7 See Rx Instructions .Route 02/03/24 02/03/24 gram/118 mL enema (Fleet Enema) .COMPLEX PRN Constipation trazodone 50 mg tablet 50 mg PO BEDTIME 02/03/24 02/03/24 Previous Rx's Medication Instructions Recorded mupirocin 2 % topical ointment 1 applic topical BID #22 grams 02/03/24 Allergies Allergy/AdvReac Type Severity Reaction Status Date / Time No Known Allergies Allergy Verified 07/29/23 12:45 PFSH ED 2 PFSH: Medical History CVA (cerebral vascular accident) Sore throat (viral) Left knee pain Primary osteoarthritis of right knee Aortic stenosis Dyslipidemia HTN (hypertension) Surgical History S/P cholecystectomy S/P carpal tunnel release S/P bunionectomy S/P knee replacement Hx of total knee arthroplasty right Family History Mother CAD (coronary artery disease) Myocardial infarction Brother CAD (coronary artery disease) Myocardial infarction Social History Smoking and tobacco/nicotine status: tobacco/nicotine user, details unknown Alcohol intake: never Substance/Drug Use: never Household members: spouse Marital status: service: Yes branch: [employer] Current occupational status: retired 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 Current gender identity: Male Ashley/Sabianism: Lutheran Physical Exam 2 Const: GENERAL APPEARANCE: cooperative ORIENTATION/CONSCIOUSNESS: Yes awake HENMT: COMMON NORMALS: normocephalic and hearing grossly normal bilaterally HEAD & SCALP: normocephalic OTHER: 1 cm laceration on the forehead just to the right of the midline Resp: COMMON NORMALS: normal respiratory effort, No retractions, No use of accessory muscles and clear to auscultation bilaterally AUSCULTATION: clear to auscultation bilaterally Cardio: COMMON NORMALS: regular rate, regular rhythm and No murmurs present (Cardio) RATE: regular rate RHYTHM: regular rhythm GI: COMMON NORMALS: Soft to palpation and No hepatosplenomegaly present A USCULTATION: Yes normoactive bowel sounds PALPATION: Yes Soft to palpation, No Tenderness to palpation present (GI), No Guarding due to palpation present (GI) and Yes No hepatosplenomegaly present Extremity: COMMON NORMALS: normal to inspection, capillary refill normal, no clubbing, cyanosis or edema, no calf tenderness and no pedal edema OTHER: Arthritic deformities of the right hand there is also a large multiple lacerations on the right hand extending up to the forearm on the dorsal surface overlying the distal ulna. Some oozing of blood pressure bandage applied. Skin: COMMON NORMALS: no rashes or lesions noted GENERAL SKIN EXAM: no rashes or lesions noted Procedures Laceration Laceration 4: Site: face (Forehead right of midline) Side (If applicable): right Size (cm): 2.5 Description: linear Depth: simple, single layer Local Anesthetic: lidocaine 1% and with epi Amount of anesthesia used (mL): 1 Skin layer closed with: other Size (cm): 5-0 Number of sutures: 3 Technique: simple, interrupted Course 2 Vital Signs: Vital signs: Vital Signs Temperature 97.8 F 02/03/24 08:15 Pulse Rate 48 L 02/03/24 14:33 Respiratory Rate 11 L 02/03/24 09:30 Blood Pressure 134/80 02/03/24 14:33 Pulse Oximetry 95 02/03/24 14:33 Oxygen Delivery Me thod Room Air 02/03/24 08:15 MDM - Wound/Laceration Medical Decision Making CT of head and neck unremarkable. Laceration of forehead repaired under local anesthesia by myself. Laceration on the right hand was closed by Manju Winters midlevel at my request. Examination wound after skin well-approximated cosmesis and hemostasis. X-ray of the hand initially was difficult to read we were able to repeat distracting the fingers by placing gauze rolls between the fingers there is a distal fifth metacarpal fracture nondisplaced. Patient placed in an ulnar gutter splint and referred to orthopedics. Wound care instructions for sutures to be removed in 7 to 10 days. Apply topical antibiotic ointment to the wounds 1-2 times daily. Medical Records I reviewed the patient's medical records. Lab Data I reviewed the patient's lab results. 02/03/24 09:10 02/03/24 09:[address] 02/03/24 08:22 IMPRESSION: 1. No evidence of intracranial hemorrhage or mass effect. 2. 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 3. Vascular calcification. 4. Moderate small vessel changes with moderate parenchymal volume loss. 5. No acute intracranial findings. Cervical Spine CT 02/03/24 09:31 IMPRESSION: No evidence of acute fracture or dislocation. Hand X-Ray 02/03/24 09:40 Impression: Findings demonstrate a nondisplaced fracture of the distal right fifth metacarpal. No dislocation seen There is significant osteopenia and degenerative changes noted in the hand and the wrist. Laboratory Results WBC 6.41 10^3/uL (3.29-11.43) 02/03/24 09:10 RBC 4.42 10^6/uL (3.85-5.65) 02/03/24 09:10 Hgb 13.80 g/dL (11.27-16.99) 02/03/24 09:10 Hct 42.5 % (37-53) 02/03/24 09:10 MCV 96.2 fl (82-101) 02/03/24 09:10 MCH 31.2 pg (27-33) 02/03/24 09:10 MCHC 32.5 g/dL (30-55) 02/03/24 09:10 RDW 13.4 % (12.1-15.1) 02/03/24 09:10 Plt Count 184 10^3/cmm (157-399) 02/03/24 09:10 MPV 10.5 fL (7.4-10.4) H 02/03/24 09:10 Neut % (Auto) 60.7 % 02/03/24 09:10 Lymph % (Auto) 24.3 % 02/03/24 09:10 [place] % (Auto) 9.4 % 02/03/24 09:10 Eos % (Auto) 4.7 % 02/03/24 09:10 Baso % (Auto) 0.6 % 02/03/24 09:10 Neut # (Auto) 3.89 10^3/uL (1.8-7.7) 02/03/24 09:10 Lymph # (Auto) 1.6 10^3/uL (0.8-4.8) 02/03/24 09:10 [place] # (Auto) 0.6 10^3/uL (0.2-0.9) 02/03/24 09:10 Eos # (Auto) 0.3 10^3/uL (0.0-0.8) 02/03/24 09:10 Baso # (Auto) 0.0 10^3/uL (0.0-0.1) 02/03/24 09:10 Nucleated RBC % (auto) 0 % 02/03/24 09:10 Nucleated RBCs # 0.0 /100WBC 02/03/24 09:10 Sodium 137 mmol/L (136-145) 02/03/24 09:10 Potassium 3.9 mmol/L (3.5-5.1) 02/03/24 09:10 Chloride 101 mmol/L (98-107) 02/03/24 09:10 Carbon Dioxide 24 mmol/L (22-29) 02/03/24 09:10 Anion Gap 15.9 (5-19) 02/03/24 09:10 BUN 26 mg/dL (8-23) H 02/03/24 09:10 Creatinine 0.6 mg/dL (0.7-1.2) L 02/03/24 09:10 GFR Calculation Not Reportable 02/03/24 09:10 Glucose 80 mg/dL (65-115) 02/03/24 09:10 Calculated Osmolality 288 mOsm/kg (285-295) 02/03/24 09:10 Calcium 8.9 mg/dL (8.5-10.5) 02/03/24 09:10 Total Bilirubin 1.2 mg/dL (0.15-1.2) 02/03/24 09:10 AST 27 U/L (0-40) 02/03/24 09:10 ALT 15 U/L (0-41) 02/03/24 09:10 Alkaline Phosphatase 100 U/L (40-130) 02/03/24 09:10 Total Protein 6.7 g/dL (6.6-8.7) 02/03/24 09:10 Albumin 3.9 g/dL (3.5-5.2) 02/03/24 09:10 Globulin 2.8 g/dL (1.3-4.6) 02/03/24 09:10 All radiology interpretation(s) finalized by discharge Discharge Plan Discharge Patient Disposition: Home Clinical Impression: Fall, Facial laceration, Laceration of hand, Closed fracture of 5th metacarpal Condition: Stable Prescriptions: New mupirocin 2 % ointment 1 applic topical BID Qty: 22 0RF Rx Instructions: Apply twice daily to wounds No Action levothyroxine 75 mcg capsule 75 mcg PO QDAY atorvastatin 80 mg tablet 80 mg PO QPM clopidogrel 75 mg tablet 75 mg PO DAILY Fleet Enema 19-7 gram/118 mL Enema See Rx Instructions .ROUTE .COMPLEX PRN (Reason: Constipation) Rx Instructions: GIVE 118 ML RECTALLY EVERY 24 HOURS NEEDED IF NO RESPONSE FROM SUPPOSITORY. bisacodyl 5 mg Tablet See Rx Instructions .ROUTE .COMPLEX PRN (Reason: Constipation) Rx Instructions: TAKE 4 TABLETS BY MOUTH EVERY 24 HOURS NEEDED FOR CONSTIPATON IF NO RESULTS FROM MILK OF MAGNESIA . trazodone 50 mg tablet 50 mg PO BEDTIME Zyrtec 10 mg Tablet 10 mg PO DAILY Milk of Magnesia 400 mg/5 mL Suspension See Rx Instructions .ROUTE .COMPLEX PRN (Reason: Constipation) Rx Instructions: GIVE 30ML BY MOUTH EVERY 24 HOURS NEEDED FOR CONSTIPATION IF NO BOWEL MOVEMENT IN 3 DAYS. fluoxetine 10 mg capsule 10 mg PO DAILY naproxen 500 mg tablet 500 mg PO Q12H PRN (Reason: Pain) Discharge Orders: Discharge ED (Routine); Ordered 02/03/24 Ordered By: Red Giron Discharge Diet: Usual diet Discharge Activity: Limit activity as instructed Patient Instructions: Opioid Safety, Pain Management Activity Restrictions/Additional Instructions: Thank you for choosing [facility] for your healthcare needs today. It is very important that you follow up as instructed or that you return to the Emergency Department should you have concerns or if your condition changes or worsens in any way. You are seen today after a fall. It is a laceration to the forehead which was sutured. There is also extensive laceration to the right hand which is also sutured. Finally you do have a fracture of the bone at the base of the fifth finger on the right hand. You will be placed in a splint for this and follow-up with orthopedics. Apply topical antibiotic ointment to the wounds twice a day sutures to be removed in 7 days. Coding Level of Care Code ED [facility] for Chg Fwd Documented by User: DAYAMI Sanchez 02/03/24 11:38 HPI - Wound/Laceration 2 General: Chief Complaint: Wound/Laceration Stated Complaint: Fall Time Seen by Provider: 02/03/24 08:21 Related Data Home Medications Medication Instructions Recorded Confirmed levothyroxine 75 mcg capsule 75 mcg PO QDAY 07/22/19 02/03/24 atorvastatin 80 mg tablet 80 mg PO QPM 02/03/24 02/03/24 bisacodyl 5 mg tablet See Rx Instructions .Route 02/03/24 02/03/24 .COMPLEX PRN Constipation cetirizine 10 mg tablet (Zyrtec) 10 mg PO DAILY 02/03/24 02/03/24 clopidogrel 75 mg tablet 75 mg PO DAILY 02/03/24 02/03/24 fluoxetine 10 mg capsule 10 mg PO DAILY 02/03/24 02/03/24 magnesium hydroxide 400 mg/5 mL See Rx Instructions .Route 02/03/24 02/03/24 oral suspension (Milk of Magnesia) .COMPLEX PRN Constipation naproxen 500 mg tablet 500 mg PO Q12H PRN Pain 02/03/24 02/03/24 sodium phosphates 19 gram-7 See Rx Instructions .Route 02/03/24 02/03/24 gram/118 mL enema (Fleet Enema) .COMPLEX PRN Constipation trazodone 50 mg tablet 50 mg PO BEDTIME 02/03/24 02/03/24 Previous Rx's Medication Instructions Recorded mupirocin 2 % topical ointment 1 applic topical BID #22 grams 02/03/24 Allergies Allergy/AdvReac Type Severity Reaction Status Date / Time No Known Allergies Allergy Verified 07/29/23 12:45 PFSH ED 2 PFSH: Medical History CVA (cerebral vascular accident) Sore throat (viral) Left knee pain Primary osteoarthritis of right knee Aortic stenosis Dyslipidemia HTN (hypertension) Surgical History S/P cholecystectomy S/P carpal tunnel release S/P bunionectomy S/P knee replacement Hx of total knee arthroplasty right Family History Mother CAD (coronary artery disease) Myocardial infarction Brother CAD (coronary artery disease) Myocardial infarction Social History Smoking and tobacco/nicotine status: tobacco/nicotine user, details unknown Alcohol intake: never Substance/Drug Use: never Household members: spouse Marital status: service: Yes branch: [employer] Current occupational status: retired 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 gender identity: Male Ashley/Sabianism: Lutheran Procedures Laceration Laceration 1: Site: hand (4th finger) Side (If applicable): right Size (cm): 1.0 Description: irregular Depth: simple, single layer Local Anesthetic: lidocaine 1% Amount of anesthesia used (mL): 1.0 Pre-repair: wound explored and irrigated extensively Skin layer closed with: nylon Size (cm): 5-0 Number of sutures: 2 Technique: simple, interrupted Laceration 2: Site: hand (5th finger) Side (If applicable): right Size (cm): 2.5 Description: irregular Depth: simple, single layer Local Anesthetic: lidocaine 1% Amount of anesthesia used (mL): 2.0 Pre-repair: wound explored and irrigated extensively Skin layer closed with: nylon Size (cm): 5-0 Number of sutures: 8 Technique: running Laceration 3: Site: hand Side (If applicable): right Size (cm): 10 Description: irregular Local Anesthetic: lidocaine 1% Amount of anesthesia used (mL): 4.0 Pre-repair: wound explored and irrigated extensively Skin layer closed with: nylon Size (cm): 5-0 Number of sutures: 15 Technique: running Course 2 ED course: I was consulted by Dr. Giron to repair patient's many lacerations/skin tears involving the dorsum of his left hand and fourth and fifth fingers. These were repaired as documented. Other than laceration repairs I did not actively participate in patient's care. ES Vital Signs: Vital signs: Vital Signs Temperature 97.8 F 02/03/24 08:15 Pulse Rate 48 L 02/03/24 14:33 Respiratory Rate 11 L 02/03/24 09:30 Blood Pressure 134/80 02/03/24 14:33 Pulse Oximetry 95 02/03/24 14:33 Oxygen Delivery Me thod Room Air 02/03/24 08:15 MDM - Wound/Laceration Lab Data 02/03/24 09:10 02/03/24 09:[address] 02/03/24 08:22 IMPRESSION: 1. No evidence of intracranial hemorrhage or mass effect. 2. 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 3. Vascular calcification. 4. Moderate small vessel changes with moderate parenchymal volume loss. 5. No acute intracranial findings. Cervical Spine CT 02/03/24 09:31 IMPRESSION: No evidence of acute fracture or dislocation. Hand X-Ray 02/03/24 09:40 Impression: Findings demonstrate a nondisplaced fracture of the distal right fifth metacarpal. No dislocation seen There is significant osteopenia and degenerative changes noted in the hand and the wrist. Laboratory Results WBC 6.41 10^3/uL (3.29-11.43) 02/03/24 09:10 RBC 4.42 10^6/uL (3.85-5.65) 02/03/24 09:10 Hgb 13.80 g/dL (11.27-16.99) 02/03/24 09:10 Hct 42.5 % (37-53) 02/03/24 09:10 MCV 96.2 fl (82-101) 02/03/24 09:10 MCH 31.2 pg (27-33) 02/03/24 09:10 MCHC 32.5 g/dL (30-55) 02/03/24 09:10 RDW 13.4 % (12.1-15.1) 02/03/24 09:10 Plt Count 184 10^3/cmm (157-399) 02/03/24 09:10 MPV 10.5 fL (7.4-10.4) H 02/03/24 09:10 Neut % (Auto) 60.7 % 02/03/24 09:10 Lymph % (Auto) 24.3 % 02/03/24 09:10 [place] % (Auto) 9.4 % 02/03/24 09:10 Eos % (Auto) 4.7 % 02/03/24 09:10 Baso % (Auto) 0.6 % 02/03/24 09:10 Neut # (Auto) 3.89 10^3/uL (1.8-7.7) 02/03/24 09:10 Lymph # (Auto) 1.6 10^3/uL (0.8-4.8) 02/03/24 09:10 [place] # (Auto) 0.6 10^3/uL (0.2-0.9) 02/03/24 09:10 Eos # (Auto) 0.3 10^3/uL (0.0-0.8) 02/03/24 09:10 Baso # (Auto) 0.0 10^3/uL (0.0-0.1) 02/03/24 09:10 Nucleated RBC % (auto) 0 % 02/03/24 09:10 Nucleated RBCs # 0.0 /100WBC 02/03/24 09:10 Sodium 137 mmol/L (136-145) 02/03/24 09:10 Potassium 3.9 mmol/L (3.5-5.1) 02/03/24 09:10 Chloride 101 mmol/L (98-107) 02/03/24 09:10 Carbon Dioxide 24 mmol/L (22-29) 02/03/24 09:10 Anion Gap 15.9 (5-19) 02/03/24 09:10 BUN 26 mg/dL (8-23) H 02/03/24 09:10 Creatinine 0.6 mg/dL (0.7-1.2) L 02/03/24 09:10 GFR Calculation Not Reportable 02/03/24 09:10 Glucose 80 mg/dL (65-115) 02/03/24 09:10 Calculated Osmolality 288 mOsm/kg (285-295) 02/03/24 09:10 Calcium 8.9 mg/dL (8.5-10.5) 02/03/24 09:10 Total Bilirubin 1.2 mg/dL (0.15-1.2) 02/03/24 09:10 AST 27 U/L (0-40) 02/03/24 09:10 ALT 15 U/L (0-41) 02/03/24 09:10 Alkaline Phosphatase 100 U/L (40-130) 02/03/24 09:10 Total Protein 6.7 g/dL (6.6-8.7) 02/03/24 09:10 Albumin 3.9 g/dL (3.5-5.2) 02/03/24 09:10 Globulin 2.8 g/dL (1.3-4.6) 02/03/24 09:10 Discharge Plan Discharge Patient Disposition: Home Clinical Impression: Fall, Facial laceration, Laceration of hand, Closed fracture of 5th metacarpal Condition: Stable Prescriptions: New mupirocin 2 % ointment 1 applic topical BID Qty: 22 0RF Rx Instructions: Apply twice daily to wounds No Action levothyroxine 75 mcg capsule 75 mcg PO QDAY atorvastatin 80 mg tablet 80 mg PO QPM clopidogrel 75 mg tablet 75 mg PO DAILY Fleet Enema 19-7 gram/118 mL Enema See Rx Instructions .ROUTE .COMPLEX PRN (Reason: Constipation) Rx Instructions: GIVE 118 ML RECTALLY EVERY 24 HOURS NEEDED IF NO RESPONSE FROM SUPPOSITORY. bisacodyl 5 mg Tablet See Rx Instructions .ROUTE .COMPLEX PRN (Reason: Constipation) Rx Instructions: TAKE 4 TABLETS BY MOUTH EVERY 24 HOURS NEEDED FOR CONSTIPATON IF NO RESULTS FROM MILK OF MAGNESIA . trazodone 50 mg tablet 50 mg PO BEDTIME Zyrtec 10 mg Tablet 10 mg PO DAILY Milk of Magnesia 400 mg/5 mL Suspension See Rx Instructions .ROUTE .COMPLEX PRN (Reason: Constipation) Rx Instructions: GIVE 30ML BY MOUTH EVERY 24 HOURS NEEDED FOR CONSTIPATION IF NO BOWEL MOVEMENT IN 3 DAYS. fluoxetine 10 mg capsule 10 mg PO DAILY naproxen 500 mg tablet 500 mg PO Q12H PRN (Reason: Pain) Discharge Orders: Discharge ED (Routine); Ordered 02/03/24 Ordered By: Red Giron Discharge Diet: Usual diet Discharge Activity: Limit activity as instructed Patient Instructions: Opioid Safety, Pain Management Activity Restrictions/Additional Instructions: Thank you for choosing [facility] for your healthcare needs today. It is very important that you follow up as instructed or that you return to the Emergency Department should you have concerns or if your condition changes or worsens in any way. You are seen today after a fall. It is a laceration to the forehead which was sutured. There is also extensive laceration to the right hand which is also sutured. Finally you do have a fracture of the bone at the base of the fifth finger on the right hand. You will be placed in a splint for this and follow-up with orthopedics. Apply topical antibiotic ointment to the wounds twice a day sutures to be removed in 7 days. Coding Level of Care Code ED [facility] for Murray Brown
--- NOTE | 2024-02-03 08:38 | XR_ITS ---
WS: [id number] Examination: XR hand RT min 3V* [id number] Reason for Exam: trauma Date: February 03, 2024 Comparison: None. Findings: Nonstandard images of been presented for interpretation. A bandage is wrapped around the hand. There is soft tissue swelling. Significant posttraumatic and arthritic changes are noted at the wrist. There is narrowing of the rad iocarpal joint with scapholunate interval widening. Lateral wrist degenerative changes are noted. Dom inant distal interphalangeal joint arthritic changes are also noted. No displaced fracture is identified. There is no dislocation. XR/XR hand RT min 3V* [id number] Impression: These images are limited. If concern persists for fracture or dislocation then repeat images when the patient can tolerate with more standard positioning is r ecommended. There is osteopenia Old posttraumatic and arthritic changes are noted at the wrist. Osteoarthritic changes of the hand are noted.
[2024-02-03] MEDS: lidocaine-epi 1% 20 mL INJ INJECTION (09:04)
[2024-02-03] MEDS: tetanus-dipt-pertussis 0.5 mL SDV IM (09:04)
--- NOTE | 2024-02-03 09:17 | PC.NURSE ---
took over pt care from MARYURI Pacheco at 0910
[2024-02-03 09:26] LABS: Basophils % 0.6 %; Eosinophils # 0.3 10^3/uL (0.0-0.8); Eosinophils % 4.7 %; Hematocrit 42.5 % (37-53); Lymphocytes # 1.6 10^3/uL (0.8-4.8); Lymphocytes % 24.3 %; Mean Corpuscular HGB Conc 32.5 g/dL (30-55); Mean Corpuscular Hemoglobin 31.2 pg (27-33); Mean Corpuscular Volume 96.2 fl (82-101); Mean Platelet Volume 10.5 fL (7.4-10.4); Monocytes # 0.6 10^3/uL (0.2-0.9); Monocytes % 9.4 %; Neutrophils # 3.89 10^3/uL (1.8-7.7); Neutrophils % 60.7 %; Nucleated Red Blood Cells % 0 %; Platelet Count 184 10^3/cmm (157-399); Red Blood Count 4.42 10^6/uL (3.85-5.65); Red Cell Distribution Width 13.4 % (12.1-15.1); White Blood Count 6.41 10^3/uL (3.29-11.43)
--- NOTE | 2024-02-03 09:31 | CT_ITS ---
WS: [id number] CT CERVICAL TRAUMA TECHNIQUE: Noncontrast CT of the cervical spine with coronal and sagittal reformatted images. CLINICAL INFORMATION: trauma COMPARISON: None. DLP: 159.[address] scans at [facility] use at least one of these dose optimization techniques: automated e xposure control; mA and/or kV adjustment per patient size (includes targeted exams where dose is matc hed to clinical indication); or iterative reconstruction. FINDINGS: Cervical curve. Moderate spondylitic changes.. Normal craniocervical junction. Normal C1-C2 articulat ion. Dens is normal in appearance. Normal occipital condyles. No high-grade spinal canal narrowing. N ormal C1 ring. No evidence of acute fracture or dislocation. Normal prevertebral soft tissues. Mastoids air cells are well aerated. CT/CT cervical spin wo con* [id number] IMPRESSION: No evidence of acute fracture or dislocation.
--- NOTE | 2024-02-03 09:40 | XR_ITS ---
WS: [id number] Examination: XR hand RT min 3V* [id number] Reason for Exam: F/U XRAY Date: February 03, 2024 Comparison: None. Findings: The bone density is diminished. Osteoarthritic changes are identified particularly in the distal interphalangeal joints as well as wi thin the wrist. There is widening of the scapholunate interface with previous posttraumatic and resul tant arthritic changes. What may represent chronic deformity with angulation at the right fourth proximal interphalangeal alexander nt is noted. There is nondisplaced fracture involving the distal fifth metacarpal. This is best seen on the latera l image XR/XR hand RT min 3V* [id number] Impression: Findings demonstrate a nondisplaced fracture of the distal right fifth metacarp al. No dislocation seen There is significant osteopenia and degenerative changes noted in the hand and the wrist.
[2024-02-03 09:43] LABS: Alanine Aminotransferase 15 U/L (0-41); Albumin Level 3.9 g/dL (3.5-5.2); Alkaline Phosphatase 100 U/L (40-130); Anion Gap 15.9 (5-19); Aspartate Amino Transferase 27 U/L (0-40); Blood Urea Nitrogen 26 mg/dL (8-23); Calcium 8.9 mg/dL (8.5-10.5); Carbon Dioxide 24 mmol/L (22-29); Chloride 101 mmol/L (98-107); Globulin 2.8 g/dL (1.3-4.6); Glucose 80 mg/dL (65-115); Osmolality Calculated 288 mOsm/kg (285-295); Potassium 3.9 mmol/L (3.5-5.1); Sodium 137 mmol/L (136-145); Total Bilirubin 1.2 mg/dL (0.15-1.2); Total Protein 6.7 g/dL (6.6-8.7)
--- NOTE | 2024-02-03 10:27 | PC.PHAR ---
PT IS FROM [facility]
--- NOTE | 2024-02-03 10:46 | PC.PHAR ---
PT ADMITTED TO [facility].
[2024-02-03] MEDS: mupirocin oint 22 gm 1 APPLIC TOPICAL (11:55)
--- NOTE | 2024-02-04 07:32 | DCPLANNER ---
messaged ortho for er f/u
== END 2024-02-03 14:40 | disposition home or self-care (01) ==
PROVIDERS: Emergency Provider Family Medicine
DX: S01.81XA Laceration without foreign body of other part of head, initial encounter (principal); S61.411A Laceration without foreign body of right hand, initial encounter; S62.306A Unspecified fracture of fifth metacarpal bone, right hand, initial encounter for closed fracture; Z79.02 Long term (current) use of antithrombotics/antiplatelets; Z72.0 Tobacco use; Z86.73 Personal history of transient ischemic attack (TIA), and cerebral infarction without residual deficits; E78.5 Hyperlipidemia, unspecified; I10 Essential (primary) hypertension; W19.XXXA Unspecified fall, initial encounter; Y92.129 Unspecified place in nursing home as the place of occurrence of the external cause; Z23 Encounter for immunization
CPT/HCPCS: 12005; 12011; 36415; 70450; 72125; 73130; 80053; 85025; 90471; 90715; 99284

== ENCOUNTER 2024-02-06 06:00 | Outpatient (CLI) | payer MEDICARE, OTHER, SELFPAY | END 2024-02-06 23:59 | disposition home or self-care (01) | LOC: SOT 02-09 13:22 | PROVIDERS: PCP Nurse Practitioner Family; Visit Provider Student in an Organized Health Care Education/Training Program | DX: Z46.89 Encounter for fitting and adjustment of other specified devices (principal); S62.308D Unspecified fracture of other metacarpal bone, subsequent encounter for fracture with routine healing; X58.XXXD Exposure to other specified factors, subsequent encounter | CPT/HCPCS: 97760; 99204; L3919 ==

== ENCOUNTER → 2024-02-06 11:20 | Outpatient (BNVA) | payer MEDICARE, OTHER, SELFPAY | PROVIDERS: PCP Nurse Practitioner Family; Visit Provider Student in an Organized Health Care Education/Training Program | DX: S62.336A Displaced fracture of neck of fifth metacarpal bone, right hand, initial encounter for closed fracture; X58.XXXA Exposure to other specified factors, initial encounter; R82.90 Unspecified abnormal findings in urine | CPT/HCPCS: 73130; 81000 ==